=== PATIENT | female | born 1960 | race Caucasian/White ===

== ENCOUNTER 2018-09-17 05:26 | Day surgery (SDC) | payer OTHER, SELFPAY ==
[2018-09-17] VITALS (10 sets, daily range): BP systolic 127–158; BP diastolic 66–103; PULSE 59–82; RESP 16; TEMP 36.3–37; O2SAT 96–100
--- NOTE | 2018-09-17 06:02 | PCM.HP.STD ---
Problem List (1) Screening for intestinal cancer Status: Acute History of Present Illness Date of Admission: 09/17/18 The patient is a 57 year old F who presents for screening colonoscopy. She has never previously had one. She denies bright red blood per rectum or melena. No personal or family history of colon cancer. She is intolerant to Demerol. She was previously scheduled but had problems with the prep not functioning. She is taken additional bowel prep with results. She presents now proceed Past Medical History Past Medical History (Chronic Problems): Chronic Problems (Last Updated 08/13/18 @ 11:45 by Leslie Fox) Hypothyroidism (Chronic) HLD (hyperlipidemia) (Chronic) DM2 (diabetes mellitus, type 2) (Chronic) HTN (hypertension), benign (Chronic) Medical History: Medical History (Last Updated 08/13/18 @ 11:45 by Leslie Fox) Diabetes E11.9 Hemorrhoids K64.9 Thyroid disease E07.9 Hypertension I10 Allergies meperidine [From Demerol] Allergy (Mild, Verified 09/17/18 05:42) Other Pt states Demerol given quickly and HR dropped Sulfa (Sulfonamide Antibiotics) Allergy (Mild, Verified 08/13/18 11:38) X Home Medications: Ambulatory Orders Medication Instructions Recorded clonidine HCl 0.1 mg tablet 1 tab PO BID 30 Days #60 tab 08/13/18 fluticasone 250 mcg-salmeterol 50 1 inh INHALATION BID PRN 08/13/18 mcg/dose blistr powdr for inhalation furosemide 20 mg tablet 1 tab PO DAILY 30 Days #30 tab 08/13/18 levothyroxine 112 mcg tablet 1 tab PO DAILY 30 Days #30 tab 08/13/18 lisinopril 10 mg tablet 0.5 tab PO DAILY 30 Days #15 tab 08/13/18 metoprolol succinate ER 50 mg 1.5 tab PO BID 30 Days #90 tab 08/13/18 tablet,extended release 24 hr simvastatin 80 mg tablet 1 tab PO QHS 30 Days #30 tab 08/13/18 sitagliptin 50 mg-metformin 1,000 1 tab PO BID 30 Days #60 tab 08/13/18 mg tablet venlafaxine ER 150 mg 150 mg PO DAILY 30 Days #30 cap 08/13/18 capsule,extended release 24 hr Albuterol Inhaler [Ventolin Hfa 1 puff INHALATION Q4H PRN PRN 09/11/18 (SP)] sod phos mono-sod phos dibasic 1.5 4 tab PO Q15M #32 tab 09/15/18 gram (1.102-0.398) tablet Surgical History: Surgical History (Last Updated 08/13/18 @ 11:45 by Leslie Fox) BLADDER SLING H/O partial thyroidectomy Z98.890 History of Z98.891 History of hysterectomy Z90.710 History of tonsillectomy Z90.89 Surgical History: noncontributory Smoking Status: Never smoker Review of Systems Constitutional: Denies: Anorexia HEENT: Denies: Difficulty Swallowing Cardiovascular: Denies: Chest Pain Respiratory: Denies: Cough Gastrointestinal: Denies: Abdominal Pain, Melena Endocrine: Denies: Change in Body Habitus VTE Information - Inpt Only VTE Present on Admission: No Patient Problems: Active and Suspected Problems (Last Updated 08/13/18 @ 11:45 by Leslie Fox) Screening for intestinal cancer (Acute) - Physical Exam General: Alert, Oriented x3, Cooperative, No apparent distress HEENT: Atraumatic Oral: Moist Mucosa Lungs: Clear to auscultation Cardiovascular: Regular rate, Regular Rhythm Abdomen: Bowel Sounds Present, Soft, Obese Extremities: No Calf Tenderness Psych/Mental Status: Normal Affect Vital Signs Temp Pulse Resp BP Pulse Ox 98.2 F 82 16 150/103 H 100 09/17/18 05:43 09/17/18 05:59 09/17/18 05:43 09/17/18 05:59 09/17/18 05:43 Oxygen Delivery Method Room Air Assessment/Plan All Active Problems (Last Updated 08/13/18 @ 11:45 by Leslie Fox) Screening for intestinal cancer (Acute) Nodule of neck (Acute) Aphthous stomatitis (Acute) I have discussed with the patient the benefits, risks, alternatives to a screening colonoscopy with possible biopsy or polypectomy is indicated. We will avoid Demerol and utilize fentanyl. She is aware of the technique, benefits, risks, alternatives. She presents via open access today. Ramses Bunn M.D., F.A.C.S.
--- NOTE | 2018-09-17 06:44 | OP.ENDO_ITS ---
Patient Name: Mary Ayala Procedure Date: 09/17/2018 6:10 AM Date of : 1960 Age: 57 Procedure: Colonoscopy Indications: Screening for colorectal malignant neoplasm Providers: Ramses Bunn MD Medicines: Midazolam 3.5 mg IV, Fentanyl 100 micrograms IV, Diphenhydramine 25 mg IV Patient Profile: Last Colonoscopy: none. The patient's first colonoscopy is today. Complications: No immediate complications. Procedure: Pre-Anesthesia Assessment: - Prior to the procedure, a History and Physical was performed, and patient medications and allergies were reviewed. The patient's tolerance of previous anesthesia was also reviewed. The risks and benefits of the procedure and the sedation options and risks were discussed with the patient. All questions were answered, and informed consent was obtained. Prior Anticoagulants: The patient has taken no previous anticoagulant or antiplatelet agents. ASA Grade Assessment: II - A patient with mild systemic disease. After reviewing the risks and benefits, the patient was deemed in satisfactory condition to undergo the procedure. After I obtained informed consent, the scope was passed under direct vision. Throughout the procedure, the patient's blood pressure, pulse, and oxygen saturations were monitored continuously. The colonoscope was introduced through the anus and advanced to the cecum, identified by appendiceal orifice and ileocecal valve. The colonoscopy was performed without difficulty. The patient tolerated the procedure well. The quality of the bowel preparation was good. The ileocecal valve was photographed. Moderate Sedation: Moderate (conscious) sedation was personally administered by the endoscopist. The following parameters were monitored: oxygen saturation, heart rate, blood pressure, and response to care. Total physician intraservice time was 15 minutes. Scope In: 6:25:31 AM Scope Withdrawal Time 0 hours 6 minutes 37 seconds Scope Out: 6:40:29 AM Total Procedure Duration Time 0 hours 14 minutes 58 seconds Findings: Hemorrhoids were found on perianal exam. Scattered diverticula were found in the sigmoid colon. The exam was otherwise without abnormality. Impression: - Hemorrhoids found on perianal exam. - Diverticulosis in the sigmoid colon. - The examination was otherwise normal. - No specimens collected. Recommendation: - Discharge patient to home. - Resume previous diet. - Continue present medications. - Repeat colonoscopy in 10 years for screening purposes. Procedure Code(s): --- Professional --- 61254, Colonoscopy, flexible; diagnostic, including collection of specimen(s) by brushing or washing, when performed (separate procedure) 67388, 59, Moderate sedation services provided by the same physician or other qualified health healthcare educator performing the diagnostic or therapeutic service that the sedation supports, requiring the presence of an independent trained observer to assist in the monitoring of the patient's level of consciousness and physiological status; initial 15 minutes of intraservice time, patient age 5 years or older Diagnosis Code(s): --- Professional --- Z12.11, Encounter for screening for malignant neoplasm of colon K64.9, Unspecified hemorrhoids K57.30, Diverticulosis of large intestine without perforation or abscess without bleeding CPT copyright 2017 [employer]. All rights reserved. The codes documented in this report are preliminary and upon sports medicine trainer review may be revised to meet current compliance requirements. Ramses Bunn MD 09/17/2018 6:44:25 AM This report has been signed electronically. Number of Addenda: 0 Note Initiated On: 09/17/2018 6:10 AM
== END 2018-09-17 07:17 | disposition home or self-care (01) ==
LOC: EN 05:28 → AC 05:29
PROVIDERS: Family Provider Family Medicine; PCP Family Medicine; Referring Provider Surgery; Visit Provider Surgery
PROC: 0DJD8ZZ Inspection of Lower Intestinal Tract, Via Natural or Artificial Opening Endoscopic (ICD-10-PCS; CPT 45378; principal; 2018-09-17 06:25)
DX: Z12.11 Encounter for screening for malignant neoplasm of colon (principal); K57.30 Diverticulosis of large intestine without perforation or abscess without bleeding; K64.9 Unspecified hemorrhoids; E03.9 Hypothyroidism, unspecified; E78.5 Hyperlipidemia, unspecified; E11.9 Type 2 diabetes mellitus without complications; I10 Essential (primary) hypertension; Z79.84 Long term (current) use of oral hypoglycemic drugs; Z79.899 Other long term (current) drug therapy
CPT/HCPCS: 45378; 99152; 99153; J7120

== ENCOUNTER → 2019-04-06 | Outpatient (CLI) | payer OTHER, SELFPAY | END | disposition home or self-care (01) | LOC: BFHLAB 15:29 | PROVIDERS: PCP Family Medicine; Visit Provider Family Medicine | DX: L02.12 Furuncle of neck (principal) | CPT/HCPCS: 87070; 87077; 87186; 87205 ==

== ENCOUNTER → 2020-03-31 09:26 | Outpatient (CLI) | payer BC, SELFPAY ==
--- NOTE | 2020-03-31 09:31 | BI_ITS ---
MAMMOGRAPHY - BILATERAL DIAGNOSTIC REASON FOR EXAM: Female, 59 years old. One-month history of left breast lump. PERTINENT HISTORY: Non-contributory. TECHNIQUE: Digital bilateral breast alejandro (3D mammographic acquisition) in the CC and MLO projections. 2-D mediolateral oblique (MLO) and craniocaudad (CC) views of both breasts were obtained. CAD: Full Field Digital Mammography with Computer Added Detection was performed. COMPARISON: Comparison is made with prior outside examination of 01/07/2014. FINDINGS: Breast Composition: There are scattered areas of fibroglandular density. There are no dominant masses or suspicious calcifications. Stable benign-appearing bilateral axillary lymph nodes. No other significant abnormalities are identified. There has been no significant change since the prior study. BI/DIAG MAMM W/CAD, BILAT IMPRESSION: Stable bilateral diagnostic mammogram. Correlation with ultrasound is recommended to assess the palpable abnormality. ASSESSMENT CATEGORY: BIRADS Category 0: Incomplete. Need additional imaging evaluation. A letter regarding these results will be sent to the patient by the facility within 30 days. Approximately 10% of breast cancers are not detected by mammography. A normal mammogram should not delay biopsy of a clinically suspicious abnormality. Electronically Signed: Antonio Barbosa MD at 11:26 EST , Service support ,
--- NOTE | 2020-03-31 10:53 | US_ITS ---
STUDY: ULTRASOUND BREAST - LEFT REASON FOR EXAM: Female, 59 years old. Palpable lump left breast. TECHNIQUE: Axial and longitudinal images of the LEFT breast were performed with a high resolution ultrasound transducer. # OF IMAGES: 64 COMPARISON: Comparison is made with prior mammogram done earlier today. FINDINGS: LEFT Breast: The upper outer quadrant of the left breast was examined by ultrasound. Dense fibroglandular tissue. No sonographic abnormality is seen. US/Breast Limited Unilateral IMPRESSION: No sonographic abnormality is seen. ASSESSMENT CATEGORY: BIRADS Category 1: Negative. A letter regarding these results will be sent to the patient by the facility within 30 days. Electronically Signed: Antonio Barbosa MD at 14:36 EST , Service support ,
== END ==
LOC: OPBI 09:29
PROVIDERS: PCP Family Medicine; Referring Provider Family Medicine; Visit Provider Family Medicine
DX: N63.25 Unspecified lump in the left breast, overlapping quadrants (principal)
CPT/HCPCS: 76642; 77062; 77066; G0279

== ENCOUNTER → 2020-04-20 13:20 | Outpatient (CLI) | payer BC, SELFPAY ==
[2020-04-19 13:12] VITALS: BMI 39.0
--- NOTE | 2020-04-20 13:23 | US_ITS ---
STUDY: ULTRASOUND BREAST - LEFT REASON FOR EXAM: Female, 59 years old. Palpable lump left breast. TECHNIQUE: Axial and longitudinal images of the LEFT breast were performed with a high resolution ultrasound transducer. # OF IMAGES: 12 COMPARISON: Comparison is made with prior mammogram dated 03/31/2020 and prior ultrasound of the left breast dated 09/28/2020 FINDINGS: LEFT Breast: Under direct sonographic guidance, the surgeon performed core biopsies of the 3 mm x 3 mm hypoechoic nodule at the 12 o''clock position in the breast at 12 cm from the nipple. US/Breast Limited Unilateral IMPRESSION: Successful ultrasound-guided core biopsy of the hypoechoic lesion at the 12 o''clock position of the breast. ASSESSMENT CATEGORY: BIRADS Category 2: Benign. A letter regarding these results will be sent to the patient by the facility within 30 days. Electronically Signed: Antonio Barbosa MD at 15:11 EST , Service support ,
== END ==
LOC: OPUS 13:21
PROVIDERS: PCP Family Medicine; Referring Provider Surgery; Visit Provider Surgery
DX: N63.25 Unspecified lump in the left breast, overlapping quadrants (principal)
CPT/HCPCS: 76642

== ENCOUNTER → 2020-05-04 07:42 | Outpatient (CLI) | payer BC, SELFPAY ==
[2020-04-19 13:12] VITALS: BMI 39.0
--- NOTE | 2020-05-04 07:44 | US_ITS ---
ULTRASOUND GUIDED CORE BIOPSY REASON FOR EXAM: Female, 59 years old. Left breast mass PERTINENT HISTORY: Abnormal left breast ultrasound. COMPARISON: None. TECHNIQUE: (All elements of maximal sterile barrier technique followed, including US elements as applicable) Under direct sonographic guidance, the surgeon performed core biopsies of the 3 mm x 4 mm x 2 mm hypoechoic nodule at the 12 o''clock position of the breast at 12 cm from the nipple. US/US Breast Biopsy 1st Lesion IMPRESSION: Ultrasound guided core biopsy of a mass in the LEFT breast at 12 o''clock position of the breast at 12 cm from nipple. without complication. Electronically Signed: Antonio Barbosa MD at 9:15 EST , Service support ,
--- NOTE | 2020-05-04 08:30 | BRBX_PTH ---
PATIENT: TASIA CANDELARIA LOC: [facility]#:[id number] AGE/SX: 64/F ROOM: RE05/04/[address]: Dr. Cely Butler MD : 1960 BED: DIS: SPEC #: [id number] RECD: 05/04/20 09:03 STATUS: HERB ANA ROSA #: [id number] LILI: 05/04/20 08:[address]: Cely Butler DEPT: SURGICAL PATHOLOGY RECD BY: Pam Woods ENTERED: 05/04/20 10:42 SP TYPE: BREAST BX OTHR DR: Dr. Zoë Payton MD Tissues: Breast, NOS Procedures: Surgery Specimen Level IV HEADER OPERATION: Ultrasound-guided left breast biopsy PRE-OP DIAGNOSIS: Left breast mass TISSUE SUBMITTED: Left breast mass ISCHEMIC TIME: 30 seconds FIXATION TIME: 11 hours MICROSCOPIC DIAGNOSIS Left breast mass, ultrasound-guided core biopsy: Fragments of fatty benign breast tissue. Negative for atypia or malignancy. See comment. LUCIAN:glenn 05/05/2020 COMMENT Correlation with clinical, radiologic findings and appropriate follow up are necessary. MICROSCOPIC DESCRIPTION Slides are reviewed. GROSS DESCRIPTION Received in fixative is one container labeled with the patient name and designated left breast. The specimen consists of multiple elongated fragments of mcdaniels-yellow fibroadipose tissue that in aggregate measure 2.5 x 1 x 0.1 cm. The entire specimen is submitted in one cassette. / SJ:glenn 05/04/2020 TC:4 CPT: 50555
--- NOTE | 2020-05-04 08:35 | PCM.OPRPT ---
Report of Operation Date of Procedure: 05/04/20 Pre-Operative Diagnosis: Left breast mass Post-Operative Diagnosis: Same Surgery/Procedure Performed:: Left ultrasound-guided breast biopsy?12:00/1:00 12 cm from nipple Type of Anesthesia:: Local Specimen's removed: Left breast mass 12:00/:00 12 cm from the nipple Estimated Blood Loss (mL): Normal Description of Procedure: Procedure: ultrasound-guided core biopsy Indications: 59 year-old female with hypoechoic nodule at 12:00/:00 in the left breast 12 centimeters from the nipple. Risk benefits were discussed the patient and she elected to proceed with ultrasound guided core biopsy with clip placement Description of procedure: Patient was brought into the ultrasound room in the left breast was marked. A timeout was completed verifying correct patient, procedure, site, specially, prior to beginning procedure. The left breast was prepped and draped in usual sterile fashion and using local anesthesia was obtained with 1% lidocaine with epi. The lesion was located with the ultrasound. Small incision was made with 11 blade to introduced the mammotome through the skin. Under ultrasound guidance multiple core samples were obtained using then 13-gauge mammotome and sent in formalin for pathology. The mammotome mammostar clip was then deployed into the biopsy cavity under ultrasound guidance and a picture was taken. Upon completion procedure hemostasis was obtained and a Steri-Strip and OpSite were placed. Patient was then taken to the mammography suite for clip verification. The clip was verified. The patient tolerated the procedure well and was discharged from the breast imaging department good condition. complications: none - Complications None
== END ==
LOC: US 07:42
PROVIDERS: PCP Family Medicine; Referring Provider Surgery; Visit Provider Surgery
DX: N63.20 Unspecified lump in the left breast, unspecified quadrant (principal)
CPT/HCPCS: 19083; 88305

== ENCOUNTER → 2020-08-04 09:23 | Outpatient (CLI) | payer BC, SELFPAY ==
[2020-04-19 13:12] VITALS: BMI 39.0
--- NOTE | 2020-08-04 09:26 | US_ITS ---
STUDY: ULTRASOUND BREAST - LEFT REASON FOR EXAM: Female, 59 years old. Left breast nodule. Prior ultrasound-guided biopsy. TECHNIQUE: Axial and longitudinal images of the LEFT breast were performed with a high resolution ultrasound transducer. # OF IMAGES: 45 COMPARISON: Comparison is made with prior sonogram dated 04/20/2020. FINDINGS: LEFT Breast: Stable 3 mm x 4 mm x 3 mm hypoechoic nodular density at the 12 o''clock position of the breast 12 cm from nipple. A tissue clip marker is seen within it. US/Breast Limited Unilateral IMPRESSION: Status post ultrasound-guided biopsy with clip placement as described. ASSESSMENT CATEGORY: BIRADS Category 2: Benign. A letter regarding these results will be sent to the patient by the facility within 30 days. Electronically Signed: Antonio Barbosa MD at 13:29 EDT , Service support ,
== END ==
PROVIDERS: PCP Family Medicine; Referring Provider Surgery; Visit Provider Surgery
DX: N63.20 Unspecified lump in the left breast, unspecified quadrant (principal)
CPT/HCPCS: 76642

== ENCOUNTER 2020-08-29 10:50 | Day surgery (SDC) | payer BC, SELFPAY ==
[2020-08-22 14:08] VITALS: BMI 39.0
[2020-08-29] MEDS: Lactated Ringers 1,000 ML 100 ML IV (11:05)
--- NOTE | 2020-08-29 11:28 | PCM.HP.BLA ---
History and Physical Date of Admission: 08/29/20 Date of Service: 08/22/20 MR#:[id number] Acct:[id number] Name: TASIA CANDELARIA :1960 Age/Sex: 59/F Rep #:[id number] Provider:Dr. Cely Butler MD Location:[facility] Status:Signed Intake Vital Signs 08/22/20 14:08 BMI 39.0 Intake Visit Reasons: Discuss possible repeat breast bx Chief Complaint: left breast issue Allergies meperidine [From Demerol] Allergy (Mild, Verified 08/22/20 13:48) Other Sulfa (Sulfonamide Antibiotics) Allergy (Mild, Verified 08/22/20 13:48) X Medications clonidine HCl 0.1 mg tablet 1 tab PO BID 30 Days #60 tab 08/13/18 [History Confirmed 08/22/20] fluticasone 250 mcg-salmeterol 50 mcg/dose blistr powdr for inhalation 1 inh INHALATION BID PRN 08/13/18 [History Confirmed 08/22/20] furosemide 20 mg tablet 1 tab PO DAILY 30 Days #30 tab 08/13/18 [History Confirmed 08/22/20] levothyroxine 112 mcg tablet 1 tab PO DAILY 30 Days #30 tab 08/13/18 [History Confirmed 08/22/20] lisinopril 10 mg tablet 0.5 tab PO DAILY 30 Days #15 tab 08/13/18 [History Confirmed 08/22/20] metoprolol succinate 50 mg tablet,extended release 24 hr 1.5 tab PO BID 30 Days #90 tab 08/13/18 [History Confirmed 08/22/20] simvastatin 80 mg tablet 1 tab PO QHS 30 Days #30 tab 08/13/18 [History Confirmed 08/22/20] venlafaxine 150 mg capsule,extended release 24 hr 150 mg PO DAILY 30 Days #30 cap 08/13/18 [History Confirmed 08/22/20] albuterol sulfate 1 puff INHALATION Q4H PRN PRN 09/11/18 [History Confirmed 08/22/20] sod phos mono-sod phos dibasic 1.5 gram (1.102-0.398) tablet 4 tab PO Q15M #32 tab 09/15/18 [Rx Confirmed 08/22/20] loratadine 10 mg tablet 10 mg PO DAILY 04/19/20 [History Confirmed 08/22/20] metformin 1,000 mg tablet 1,000 mg PO BID 04/19/20 [History Confirmed 08/22/20] multivitamin 1 tab PO DAILY 04/19/20 [History Confirmed 08/22/20] PFSH Medical History Diabetes Hemorrhoids Hypertension Thyroid disease Surgical History BLADDER SLING H/O partial thyroidectomy H/O right heart catheterization History of History of hysterectomy History of tonsillectomy Family History Mother Colon cancer CAD (coronary artery disease) Father Heart disease Brother Bleeding disorder Cancer melanoma Grandmother CVA (cerebral vascular accident) Social History Smoking Status: Never smoker alcohol intake: never HPI HPI HPI: TASIA CANDELARIA, is a 59 F who presents to the office today for review of left breast mass repeat ultrasound and pathology results. Patient's initial pathology did show fatty tissue no malignancy or atypia. Clip appears to be in the correct area as well per mammography and ultrasound. However there is still a small lesion seen on the new ultrasound given BI-RADS 2, which does not fit with the initial pathology recommend repeat biopsy or excisional biopsy. Patient preferred excisional biopsy. ROS Breast Breast: Yes left breast lump; No right breast lump, nipple discharge or breast pain Exam Const General: cooperative, healthy appearing, comfortable and no acute distress Chest Other: Left breast 01/31:00 12 cm from the nipple firm nodule about a centimeter on exam, no change in overlying skin, no pain, no nipple discharge. Resp Effort & Inspection: normal respiratory effort Cardio Rate: regular rate Psych Affect: normal affect COVID (Procedure Consent) Procedure Criteria Procedure Criteria: Yes Elective The surgeon/proceduralist and patient have discussed in detail the risk of exposure to and/or potential harm posed by the COVID-19 virus with having a surgery/procedure at this time versus the risk of delaying the surgery/procedure. It is not possible to know either the risk of delaying the surgery or procedure or chance of getting an infection with perfect accuracy, but a joint decision was made between the patient and the surgeon/proceduralist to proceed at this time with the scheduled surgery/procedure as indicated on the consent form. Assessment and Plan Assessment and Plan (1) Breast mass, left: Status: Acute Plan: We will plan for a left breast excisional biopsy with ultrasound-guided wire localization in the OR. Discussed with the procedure including risk but not limited to bleeding, infection, need for further surgery and anesthesia. Patient no further questions this time. Cely Butler M.D. Pager: [phone] [facility] [address] [place] [address], [address] [place] [address] Office: [phone] Coding Level of Care Code Off vis,est,level 3 Diagnoses Breast mass, left N63.20 08/23/20 1315<Electronically signed by Cely Butler MD>Date Cely Butler MD
[2020-08-29 11:29] VITALS: BP 173/89; PULSE 71; RESP 16; TEMP 37.4; O2SAT 98; BMI 39.1
[2020-08-29 11:41] LABS: Bedside Glucose 146 mg/dL (70-110)
[2020-08-29] MEDS: Cefazolin 2 GM in 0.9% Normal Saline 100 ML IV (12:13)
--- NOTE | 2020-08-29 12:56 | BRBX_PTH ---
PATIENT: TASIA CANDELARIA LOC: [facility] U#:[id number] AGE/SX: 59/F ROOM: RE08/29/[address]: Dr. Cely Butler MD : 1960 BED: DIS: 08/29/2020 SPEC #: [id number] RECD: 08/29/20 13:05 STATUS: HERB REYuni #: [id number] LILI: 08/29/20 12:[address]: Cely Butler DEPT: SURGICAL PATHOLOGY RECD BY: Pam Woods ENTERED: 08/29/20 13:11 SP TYPE: BREAST BX OTHR DR: Dr. Zoë Payton MD Tissues: Left breast, NOS Procedures: Surgery Specimen Level V HEADER OPERATION: Left breast ultrasound-guided wire localized excisional biopsy PRE-OP DIAGNOSIS: Left breast mass TISSUE SUBMITTED: Left breast MICROSCOPIC DIAGNOSIS Left breast, ultrasound-guided lumpectomy: Mild fibrocystic change. Changes of previous biopsy. No evidence of malignancy. AM:glenn 09/01/2020 COMMENT Reference is made to the patient?s previous left breast mass, ultrasound-guided core biopsy from 05/05/20 ([id number]) in which fragments of benign breast tissue with no evidence of malignancy were identified. Case has been reviewed in consultation with Dr. Patel who concurs with the above diagnosis. IDC:SJ MICROSCOPIC DESCRIPTION Slides are reviewed. GROSS DESCRIPTION Received in fixative is one container labeled with the patient's name and designated left breast. The specimen consists of an irregular fragment of mcdaniels-yellow fibrofatty tissue measuring 4 x 3 x 1.7 cm and weighing 9 gm. The specimen contains a metallic wire. The specimen is oriented and differentially inked as follows: anterior - yellow, posterior - black, superior - blue, inferior - green, medial - red and lateral - orange. The specimen is serially sectioned along its narrow axis (medial to lateral). The central portion of the tissue located 5 mm from the superior margin contains a firm nodule measuring 6 mm in greatest dimension. The remainder of the tissue is unremarkable. The specimen is totally submitted in seven cassettes. The lesion is represented in cassette 2. Also present free in the container is an irregular fragment of yellow-fatty tissue measuring 1.5 x 1 x 0.5 cm. This fragment is inked, bisected and totally submitted in cassette 8. Note, sections are submitted after additional fixation. / AM:glenn 08/30/20 TC:5 CPT: 85887
--- NOTE | 2020-08-29 12:59 | OP.PCM_ITS ---
Report of Operation Date of Procedure: 08/29/20 Pre-Operative Diagnosis: Right breast mass Post-Operative Diagnosis: same Surgery/Procedure Performed:: excisional biopsy of right breast mass Surgeon: Cely Butler piping design specialist: Janell Pearson Type of Anesthesia: General/Supplemental Anesthesiologist: Mynor Orozco Special Medications: Ancef 2 g IV x1 Specimen's removed: Right breast mass Estimated Blood Loss (mL): < 10 cc Fluids Replaced: Per anesthesia Description of Procedure: Patient was brought to the operating room placed supine upon the operating table. Timeout was completed verifying correct patient, procedure, site, special equipment prior to beginning procedure. General anesthesia was induced. Patient's right breast was prepped draped in usual sterile fashion. Ultrasound was used to locate right breast lesion/previous clip. Needle localization with a Kopan's needle was done under ultrasound guidance just below the area of the clip, inferior to the breast mass. Curvilinear incision was planned overlying the breast mass to minimize dissection. Incision was made with 15 blade scalpel. This was deepened with electrocautery. The excess Kopan needle was brought into the incision and 2-0 silk [id number] sutures used for traction on the needle/breast mass. Dissection followed beneath the Kopan's needle. Breast mass was removed and marked for pathology with a long stitch lateral, short stitch superior. Wound was irrigated. Hemostasis was achieved with electrocautery. Wound was closed with 3-0 subdermal sutures and 4-0 Monocryl sutures on the skin. When also dressed with Steri-Strips and OpSite. Patient tolerated procedure well stable to the postanesthesia care unit in stable condition. Complications none
--- NOTE | 2020-08-29 13:00 | BI_ITS ---
SURGICAL BREAST SPECIMEN RADIOGRAPH CLINICAL: Document presence of tissue clip marker in biopsy specimen. FINDINGS: Specimen shows presence of tissue clip marker. Electronically Signed: Antonio Barbosa MD at 14:45 EDT , Service support , BI/Breast Biopsy Specimen
--- NOTE | 2020-08-29 13:06 | EX.PCM.DISCH ---
Discharge Instructions Procedure Breast Surgery Diet Discharge Diet: No restrictions Activity Discharge Activity: May Not Drive (while taking narcotic pain meds.) May shower in (days): 1 Lifting Restrictions: 10 pounds for 1 week. Dressing / Incision Call your doctor if your incision/area has: Continuous Slow Oozing, Sudden Increased Bleeding, Increased Pain/ Swelling and Increased Redness Call your doctor if you observe: Fever of 101 or Higher Suture Line Care: Avoid Pulling/Pushing and Avoid Pinching/Bending Remove Dressing in: 1 day Additional Dressing/Incision Instructions:: May leave any op-site dressing for 2-3 days. Steri-Strips may removed after 7 to 10 days if they do not fall off on their own Follow Up Care Please Follow Up With: Cely Butler MD When: Please call [phone] for an appointment to be seen in 2 week. Test Results: Test results from this visit will be discussed in further detail at your follow-up appointment, if applicable. Discharge Plan Admission Attending Provider: Cely Butler Primary Care Provider: Zoë Payton Discharge Orders/Prescriptions Prescriptions: New oxycodone-acetaminophen [Percocet] 5-325 mg tablet 1 tab PO Q6H PRN (Reason: pain) 2 Days Qty: 5 RF: 0 Continued clonidine HCl 0.1 mg tablet 1 tab PO BID 30 Days Qty: 60 RF: 0 metoprolol succinate 50 mg tablet extended release 24 hr 1.5 tab PO BID 30 Days Qty: 90 RF: 0 venlafaxine [Effexor XR] 150 mg capsule,extended release 24hr 150 mg PO DAILY 30 Days Qty: 30 RF: 0 lisinopril 10 mg tablet 0.5 tab PO DAILY 30 Days Qty: 15 RF: 0 simvastatin 80 mg tablet 1 tab PO QHS 30 Days Qty: 30 RF: 0 furosemide 20 mg tablet 1 tab PO DAILY 30 Days Qty: 30 RF: 0 levothyroxine 112 mcg tablet 1 tab PO DAILY 30 Days Qty: 30 RF: 0 fluticasone propion-salmeterol [Advair Diskus] 250-50 mcg/dose blister with device 1 inh INHALATION BID PRN (Reason: Shortness Of Breath) RF: 0 metformin 1,000 mg tablet 1,000 mg PO BID RF: 0 loratadine [Allergy Relief (loratadine)] 10 mg tablet 10 mg PO DAILY RF: 0 multivitamin Tablet 1 tab PO DAILY RF: 0 albuterol sulfate 1 INHALER inhaler 1 puff inhalation Q4H PRN PRN (Reason: Sob &/Or Wheezing) RF: 0 Lantus Solostar U-100 Insulin 100 unit/mL (3 mL) insulin pen 38 unit SUBCUT QHS RF: 0 Referrals / Follow Up: Zoë Payton MD [Primary Care Provider] - Disposition Disposition (needs filled in before D/C Order can be placed): Home, Self Care
[2020-08-29 13:19] VITALS: BP 142/83; BP 173/89; PULSE 75; RESP 16; TEMP 36.3; O2SAT 100
[2020-08-29 13:30] VITALS: BP 139/79; BP 173/89; PULSE 72; RESP 16; O2SAT 96
[2020-08-29 13:45] VITALS: BP 124/77; BP 173/89; PULSE 69; RESP 16; TEMP 36.1; O2SAT 94
[2020-08-29 13:51] LABS: Bedside Glucose 119 mg/dL (70-110)
[2020-08-29 14:21] VITALS: BP 134/75; BP 173/89; PULSE 71; RESP 16; TEMP 36.7; O2SAT 95
== END 2020-08-29 14:26 | disposition home or self-care (01) ==
LOC: SDC 10:52 → AC 10:52
PROVIDERS: PCP Family Medicine; Referring Provider Surgery; Visit Provider Surgery
PROC: (CPT 19125; principal; 2020-08-29 12:25)
DX: N60.12 Diffuse cystic mastopathy of left breast (principal); E11.9 Type 2 diabetes mellitus without complications; I10 Essential (primary) hypertension; E07.9 Disorder of thyroid, unspecified; J45.909 Unspecified asthma, uncomplicated; E78.00 Pure hypercholesterolemia, unspecified; Z79.4 Long term (current) use of insulin; Z79.51 Long term (current) use of inhaled steroids; Z79.899 Other long term (current) drug therapy
CPT/HCPCS: 00400; 19125; 76098; 82962; 87426; 88305; 88307; C9803; J7120; J2405

== ENCOUNTER → 2021-02-20 | Outpatient (CLI) | payer BC, SELFPAY | END | disposition home or self-care (01) | LOC: LABSPEC 17:03 | PROVIDERS: PCP Family Medicine; Visit Provider Family Medicine | DX: Z20.822 Contact with and (suspected) exposure to COVID-19 (principal) | CPT/HCPCS: 87635; U0005; U0003 ==

== ENCOUNTER 2021-03-05 11:54 | Emergency (ER) | payer BC, SELFPAY ==
[2021-03-05 11:54] VITALS: BP 118/76; PULSE 86; RESP 14; TEMP 36.4; O2SAT 96; BMI 38.4
--- NOTE | 2021-03-05 12:35 | RAD_ITS ---
STUDY: X-RAY - RIGHT FOOT CLINICAL: Right foot pain, right foot injury last night. TECHNIQUE: 3 view(s) of the foot. COMPARISON: None. FINDINGS: There is a plantar calcaneal enthesophyte. Otherwise, unremarkable talus, calcaneus, and tarsal bones. Normal visualized subtalar, talonavicular, calcaneocuboid, tarsal and tarsometatarsal articulations. There is a subtle nondisplaced transverse fracture through the base of the fifth metatarsal. Normal metatarsophalangeal joint of the great toe. Normal tibial and fibular sesamoid bones. Normal interphalangeal joint of the great toe. Normal phalanges of the great toe. Normal second through fifth metatarsophalangeal joints. Normal interphalangeal joints and phalanges of the lesser toes. There is mild lateral soft tissue swelling. RAD/Foot min 3 Views IMPRESSION: Nondisplaced fifth metatarsal base fracture. Electronically Signed: Steve Diaz MD at 13:18 EST Tel , Service support ,
--- NOTE | 2021-03-05 13:50 | RAD_ITS ---
STUDY: X-RAY - RIGHT ANKLE REASON FOR EXAM: Right ankle pain and popping, right ankle injury. TECHNIQUE: 3 view(s) of the ankle. COMPARISON: None. FINDINGS: Normal visualized distal tibia and fibula. Normal medial and lateral malleoli. Normal tibiotalar articulation and ankle mortise. There is a plantar calcaneal enthesophyte. Otherwise, unremarkable visualized talus and calcaneus. The visualized subtalar, talonavicular, calcaneocuboid and tarsal articulations are normal. There is a subtle nondisplaced transverse fracture of the base of the fifth metatarsal. The soft tissue structures are unremarkable. RAD/Ankle min 3 Views IMPRESSION: Fracture of the base of the fifth metatarsal. Plantar calcaneal enthesophyte. Electronically Signed: Steve Diaz MD at 14:16 EST Tel , Service support ,
--- NOTE | 2021-03-05 14:47 | ED.VIS.LOWEX ---
HPI History of Present Illness Chief Complaint: Lower Extremity Injury Informant: patient Narrative Narrative: 60-year-old female states that last night she got out of bed and put weight on her foot and felt a pop. She notes swelling and pain along the fifth metatarsal. Pain with ambulation. She denies any other injuries. [facility] Medical History Asthma Diabetes Hemorrhoids High cholesterol History of edema History of irregular heartbeat Hypertension Thyroid disease Home Medications clonidine HCl 0.1 mg tablet 1 tab PO BID 30 Days #60 tab 08/13/18 [History Last Taken 09/17/18] fluticasone 250 mcg-salmeterol 50 mcg/dose blistr powdr for inhalation 1 inh INHALATION BID PRN 08/13/18 [History Last Taken Unknown] furosemide 20 mg tablet 1 tab PO DAILY 30 Days #30 tab 08/13/18 [History Last Taken Unknown] levothyroxine 112 mcg tablet 1 tab PO DAILY 30 Days #30 tab 08/13/18 [History Last Taken Unknown] lisinopril 10 mg tablet 0.5 tab PO DAILY 30 Days #15 tab 08/13/18 [History Last Taken 09/17/18] metoprolol succinate 50 mg tablet,extended release 24 hr 1.5 tab PO BID 30 Days #90 tab 08/13/18 [History Last Taken 09/17/18] simvastatin 80 mg tablet 1 tab PO QHS 30 Days #30 tab 08/13/18 [History Last Taken Unknown] venlafaxine 150 mg capsule,extended release 24 hr 150 mg PO DAILY 30 Days #30 cap 08/13/18 [History Last Taken Unknown] albuterol sulfate 1 puff INHALATION Q4H PRN PRN 09/11/18 [History Last Taken Unknown] loratadine 10 mg tablet 10 mg PO DAILY 04/19/20 [History Last Taken Unknown] metformin 1,000 mg tablet 1,000 mg PO BID 04/19/20 [History Last Taken Unknown] multivitamin 1 tab PO DAILY 04/19/20 [History Last Taken Unknown] Lantus Solostar U-100 Insulin 38 unit SUBCUT QHS 08/24/20 [History Last Taken Unknown] oxycodone-acetaminophen [Percocet] 1 tab PO Q6H PRN 2 Days #5 tab 08/29/20 [Rx Last Taken Unknown] Allergy/AdvReac Type Severity Reaction Status Date / Time meperidine [From Demerol] Allergy Mild Other Verified 03/05/21 11:56 Sulfa (Sulfonamide Allergy Mild X Verified 03/05/21 11:56 Antibiotics) Family History Mother Colon cancer CAD (coronary artery disease) Father Heart disease Brother Bleeding disorder Cancer melanoma Grandmother CVA (cerebral vascular accident) Surgical History BLADDER SLING H/O partial thyroidectomy H/O right heart catheterization History of History of hysterectomy History of tonsillectomy Hx of colonoscopy Social History Smoking Status: Never smoker alcohol intake: never ROS ROS ED Constitutional Constitutional ED: Denies chills, fever(s) or weight loss Eyes Eyes: Denies change in vision or diplopia ENT ENT ED: Denies ear pain, rhinorrhea or sore throat Cardiovascular Cardiovascular: Denies chest pain, orthopnea, palpitations or racing heartbeat Respiratory/Chest Respiratory/Chest: Denies cough, dyspnea or orthopnea Gastrointestinal Gastrointestinal: Denies abdominal pain, diarrhea, nausea or vomiting Genitourinary Genitourinary ED: Denies dysuria, hematuria or urinary frequency Musculoskeletal Musculoskeletal: Reports other Details: See history of present illness ; Denies arthralgias or myalgias Integumentary Denies abscess or rash Neurologic Neurologic: Denies headache(s) or weakness Psychiatric Psychiatric: Denies anxiety, depression, suicidal ideation or suicidal thoughts Endocrine Endocrinology: Denies polydipsia, polyphagia or polyuria Allergic/Immunologic Allergic/Immunologic ED: Denies mouth swelling, tongue swelling or urticaria EXAM Physical Exam Const Vital Signs: 03/05/21 11:54 Temperature 97.5 F L Temperature Source Temporal Pulse Rate 86 Respiratory Rate 14 Blood Pressure 118/76 Blood Pressure Mean 90 Pulse Ox 96 Oxygen Delivery Method Room Air Positive well nourished and well developed General Appearance ED: well developed HEENT Reports normocephalic, head/scalp atraumatic and moist mucous membranes normocephalic and atraumatic Eyes PERRL and EOMs intact bilaterally Eyes Narrative: EOMI Neck full ROM, no lymphadenopathy, supple and no JVD Resp normal respiratory effort and clear to auscultation bilaterally Cardio regular rate, regular rhythm and no murmurs GI normal to inspection, nondistended, normoactive bowel sounds and non-tender Palpation: soft Back/Spine no CVA tenderness and normal ROM Extremity Extremity Narrative: There is swelling and tenderness along the right fifth metatarsal. Limited range of motion due to pain. Neurovascular intact. General Extremety ED: Negative for edema General Extremity: Negative for edema Neuro oriented x3 and CN's II-XII intact bilaterally Sensorium / Orientation: alert Motor Exam: strength 5/5 throughout Psych mental status grossly normal Mood & Affect: Negative for depressed or tearful Skin no rashes or lesions noted and no wounds MDM MDM MDM Narrative Medical decision making narrative: Interpretation of the plain films of the right foot and ankle is a nondisplaced base of fifth metatarsal fracture. Patient declines pain medications. She will be placed in walking boot and given crutches. She is to follow-up with podiatry return if worsening or concerns Radiography Diagnostic Testing: Clinical Impression(s) from Imaging Studies Foot X-Ray 03/05/21 12:35 IMPRESSION: Nondisplaced fifth metatarsal base fracture. Electronically Signed: Steve Diaz MD at 13:18 EST Tel , Service support , Ankle X-Ray 03/05/21 13:50 IMPRESSION: Fracture of the base of the fifth metatarsal. Plantar calcaneal enthesophyte. Electronically Signed: Steve Diaz MD at 14:16 EST Tel , Service support , Discharge Plan Triage Chief Complaint: Lower Extremity Injury ED Provider: Ricky Pena Dx/Rx/DC Orders Clinical Impression: Closed nondisplaced fracture of fifth metatarsal bone of right foot Instructions: ED Fracture, Foot Prescriptions: No Action clonidine HCl 0.1 mg tablet 1 tab PO BID 30 Days Qty: 60 RF: 0 metoprolol succinate 50 mg tablet extended release 24 hr 1.5 tab PO BID 30 Days Qty: 90 RF: 0 venlafaxine [Effexor XR] 150 mg capsule,extended release 24hr 150 mg PO DAILY 30 Days Qty: 30 RF: 0 lisinopril 10 mg tablet 0.5 tab PO DAILY 30 Days Qty: 15 RF: 0 simvastatin 80 mg tablet 1 tab PO QHS 30 Days Qty: 30 RF: 0 furosemide 20 mg tablet 1 tab PO DAILY 30 Days Qty: 30 RF: 0 levothyroxine 112 mcg tablet 1 tab PO DAILY 30 Days Qty: 30 RF: 0 fluticasone propion-salmeterol [Advair Diskus] 250-50 mcg/dose blister with device 1 inh INHALATION BID PRN (Reason: Shortness Of Breath) RF: 0 metformin 1,000 mg tablet 1,000 mg PO BID RF: 0 loratadine [Allergy Relief (loratadine)] 10 mg tablet 10 mg PO DAILY RF: 0 multivitamin Tablet 1 tab PO DAILY RF: 0 albuterol sulfate 1 INHALER inhaler 1 puff inhalation Q4H PRN PRN (Reason: Sob &/Or Wheezing) RF: 0 Lantus Solostar U-100 Insulin 100 unit/mL (3 mL) insulin pen 38 unit SUBCUT QHS RF: 0 oxycodone-acetaminophen [Percocet] 5-325 mg tablet 1 tab PO Q6H PRN (Reason: pain) 2 Days Qty: 5 RF: 0 Primary Care Provider: Zoë Payton Referrals: Zoë Payton MD [Primary Care Provider] - Richard Mena DPM [STAFF PHYSICIAN] - As soon as possible Disposition Disposition: Home, Self Care
[2021-03-05 15:25] VITALS: BP 107/71; PULSE 75; RESP 16; O2SAT 96
== END 2021-03-05 16:33 | disposition home or self-care (01) ==
PROVIDERS: Emergency Provider Emergency Medicine; PCP Family Medicine; Visit Provider Emergency Medicine
DX: S92.354A Nondisplaced fracture of fifth metatarsal bone, right foot, initial encounter for closed fracture (principal); E11.9 Type 2 diabetes mellitus without complications; Z79.4 Long term (current) use of insulin; X58.XXXA Exposure to other specified factors, initial encounter; Y99.9 Unspecified external cause status; Y93.9 Activity, unspecified; Y92.9 Unspecified place or not applicable; I10 Essential (primary) hypertension; E78.00 Pure hypercholesterolemia, unspecified; E07.9 Disorder of thyroid, unspecified; J45.909 Unspecified asthma, uncomplicated; Z79.890 Hormone replacement therapy; Z79.899 Other long term (current) drug therapy
CPT/HCPCS: 73610; 73630; 99284

== ENCOUNTER 2021-03-13 09:59 | Outpatient (CLI) | payer BC, SELFPAY ==
[2021-03-13 11:03] LABS: Vitamin D,25 Hydroxy 28.6 ng/mL
== END 2021-03-13 23:59 | disposition short-term general hospital (02) ==
LOC: LAB 10:02
PROVIDERS: PCP Family Medicine; Visit Provider Podiatrist
DX: E55.9 Vitamin D deficiency, unspecified (principal)
CPT/HCPCS: 36415; 82306

== ENCOUNTER → 2021-12-07 | Outpatient (CLI) | payer BC, SELFPAY ==
--- NOTE | 2021-12-07 15:10 | BI_ITS ---
MAMMOGRAPHY - BILATERAL SCREENING REASON FOR EXAM: Female, 61 years old. Routine annual screening examination. PERTINENT HISTORY: Prior left excisional breast biopsy. TECHNIQUE: Digital bilateral breast radha (3D mammographic acquisition) in the CC and MLO projections. 2-D mediolateral oblique (MLO) and craniocaudad (CC) views of both breasts were obtained. CAD: Full Field Digital Mammography with Computer Added Detection was performed. COMPARISON: Comparison is made with prior mammogram dated 09/28/2020. FINDINGS: Breast Composition: There are scattered areas of fibroglandular density. There are no dominant masses or suspicious calcifications. Stable benign-appearing bilateral axillary lymph nodes. No other significant abnormalities are identified. There has been no significant change since the prior study. BI/SCRN MAMM (CAD)W/RADHA BILAT IMPRESSION: Stable bilateral screening mammogram. Yearly follow-up mammogram recommended. (A) ASSESSMENT CATEGORY: BIRADS Category 2: Benign. A letter regarding these results will be sent to the patient by the facility within 30 days. Approximately 10% of breast cancers are not detected by mammography. A normal mammogram should not delay biopsy of a clinically suspicious abnormality. [id number] Electronically Signed: Antonio aBrbosa MD at 8:47 EDT ,
== END | disposition home or self-care (01) ==
LOC: OPBI 15:09
PROVIDERS: PCP Family Medicine; Visit Provider Family Medicine
DX: Z12.31 Encounter for screening mammogram for malignant neoplasm of breast (principal)
CPT/HCPCS: 77063; 77067

== ENCOUNTER 2022-02-22 11:59 | Observation (INO) | payer BC, SELFPAY ==
[2022-02-22] VITALS (9 sets, daily range): BP systolic 132–162; BP diastolic 71–86; PULSE 60–78; RESP 15–19; TEMP 36.2–36.8; O2SAT 95–97; BMI 38.6
--- NOTE | 2022-02-22 12:14 | RAD_ITS ---
STUDY: X-RAY CHEST REASON FOR EXAM: Female, 61 years old. Chest pain TECHNIQUE: Single AP portable view of the chest. COMPARISON: None. FINDINGS: EKG electrodes are seen. The lungs are clear and expanded. There is no demonstrated pleural abnormality. Normal size heart. Normal mediastinum and casey. Normal visualized pulmonary arteries. There is atherosclerotic tortuosity of the aortic arch and descending thoracic aorta. There are diffuse degenerative changes of the visualized thoracic spine. Normal visualized ribs, clavicles, and shoulders. There is no demonstrated abnormality of the visualized soft tissue structures of the upper abdomen. RAD/Chest 1 View (Portable) IMPRESSION: Degenerative changes, as described above. No demonstrated acute cardiopulmonary process. Electronically Signed: Antonio Barbosa MD at 13:40 EST ,
--- NOTE | 2022-02-22 12:16 | EDS_ITS ---
HPI History of Present Illness Chief Complaint: Chest Pain Detail of Chief Complaint: Chest tightness with activity alleviated with rest Informant: patient Onset/Context/Timing Onset: Days (Onset 3 days ago) Activity at onset: sudden Timing: Intermittent Quality: Positive for Tightness Location: Substernal Current Severity: 03/12 Maximum Severity: Moderate Worsened By: Exertion (Patient states if she walks up a flight of stairs she will get chest pain now. It is taking less activity to precipitate the chest heaviness) Relieved By: Rest (Alleviated after 20 to 30 minutes of rest) Associated Symptoms: Positive for Nausea, Diaphoresis and Dyspnea; Negative for Vomiting, Cough, Fever, Lightheadedness, Acid Reflux or Palpitations Narrative Narrative: Patient is a 61-year-old woman with history of hypertension, type 2 diabetes, hypercholesterolemia and family history coronary disease at young age who presents with classic exertional angina. Patient states symptoms started 3 days ago. It does radiate to her back. There is associated nausea, dyspnea and occasionally diaphoresis. Prior Similar Symptoms: No Recent Illness/Hospitalization: No CVD Risk Factors: Positive for Hypertension, Diabetes, Hypercholesterolemia and Family History 1' </=55 PE Risk Factors: Negative for Recent Travel/Surgery, Recent Immobilization, Prior DVT or PE, Cancer or OCP + Smoking + >/=35 TAD Risk Factors: Positive for Hypertension; Negative for Marfan's Syndrome or Family History [facility] Medical History Asthma Diabetes Hemorrhoids High cholesterol History of edema History of irregular heartbeat Hypertension Thyroid disease Home Medications clonidine HCl 0.1 mg tablet 1 tab PO BID htn 30 days #60 tabs 08/13/18 [History Last Taken 09/17/18] fluticasone 250 mcg-salmeterol 50 mcg/dose blistr powdr for inhalation (Advair Diskus) 1 inh inhalation BID PRN Shortness Of Breath 08/13/18 [History Last Taken Unknown] furosemide 20 mg tablet 1 tab PO DAILY 30 days #30 tabs 08/13/18 [History Last Taken Unknown] levothyroxine 112 mcg tablet 1 tab PO DAILY 30 days #30 tabs 08/13/18 [History Last Taken Unknown] lisinopril 10 mg tablet 0.5 tab PO DAILY 30 days #15 tabs 08/13/18 [History Last Taken 09/17/18] metoprolol succinate 50 mg tablet,extended release 24 hr 1.5 tab PO BID 30 days #90 tabs 08/13/18 [History Last Taken 09/17/18] simvastatin 80 mg tablet 1 tab PO QHS 30 days #30 tabs 08/13/18 [History Last Taken Unknown] venlafaxine 150 mg capsule,extended release 24 hr (Effexor XR) 150 mg PO DAILY 30 days #30 caps 08/13/18 [History Last Taken Unknown] albuterol sulfate 90 mcg/actuation aerosol inhaler 1 puff inhalation Q4H PRN PRN Sob &/Or Wheezing 09/11/18 [History Last Taken Unknown] loratadine 10 mg tablet (Allergy Relief (loratadine)) 10 mg PO DAILY 04/19/20 [History Last Taken Unknown] metformin 1,000 mg tablet 1,000 mg PO BID 04/19/20 [History Last Taken Unknown] multivitamin 1 tab PO DAILY 04/19/20 [History Last Taken Unknown] insulin glargine 100 unit/mL (3 mL) subcutaneous pen (Lantus Solostar U-100 Insulin) 38 unit subcut QHS 08/24/20 [History Last Taken Unknown] oxycodone-acetaminophen 5 mg-325 mg tablet (Percocet) 1 tab PO Q6H PRN pain 2 days #5 tabs 08/29/20 [Rx Last Taken Unknown] Allergy/AdvReac Type Severity Reaction Status Date / Time meperidine [From Demerol] Allergy Mild Other Verified 02/22/22 11:59 Sulfa (Sulfonamide Allergy Mild X Verified 02/22/22 11:59 Antibiotics) Family History Mother Colon cancer CAD (coronary artery disease) Father Heart disease Brother Bleeding disorder Cancer melanoma Grandmother CVA (cerebral vascular accident) Surgical History BLADDER SLING H/O partial thyroidectomy H/O right heart catheterization History of History of hysterectomy History of tonsillectomy Hx of colonoscopy Social History Smoking Status: Never smoker alcohol intake: never ROS ROS ED Constitutional Constitutional ED: Denies chills, fever(s), subjective or sweats Eyes Eyes: Reports none ENT ENT ED: Denies ear pain, rhinorrhea or sore throat Cardiovascular Cardiovascular: Reports as per HPI; Denies orthopnea or paroxysmal nocturnal dyspnea Respiratory/Chest Respiratory/Chest: Reports dyspnea and dyspnea on exertion; Denies cough, orthopnea, paroxysmal nocturnal dyspnea or sputum Gastrointestinal Gastrointestinal: Reports nausea; Denies abdominal pain, constipation, diarrhea, melena or vomiting Genitourinary Genitourinary ED: Denies dysuria, hematuria or urinary frequency Musculoskeletal Musculoskeletal: Denies arthralgias, back pain, myalgias or neck pain Integumentary Denies Abrasions or rash Neurologic Neurologic: Denies headache(s), paresthesias or weakness Psychiatric Psychiatric: Reports anxiety Endocrine Endocrinology: Denies cold intolerance or heat intolerance Hematologic/Lymphatic Hematologic/Lymphatic: Denies easy bleeding or easy bruising EXAM Physical Exam Const Vital Signs: 02/22/22 12:00 02/22/22 12:24 Temperature 97.1 F L Temperature Source Temporal Pulse Rate 70 Respiratory Rate 17 Blood Pressure 162/77 H Blood Pressure Mean 105 Pulse Ox 95 Oxygen Delivery Method Room Air Room Air Positive well nourished, well developed and obese General Appearance ED: well developed and NAD; Negative for pallor Nutritional Appearance: obese HEENT Reports moist mucous membranes HEENT Narrative: Head is normocephalic atraumatic. Ears normal. Nares patent. Eyes PERRL and EOMs intact bilaterally General Eye ED: Negative for pale conjunctiva or scleral icterus Neck no lymphadenopathy, supple and no JVD Chest Wall inspection of chest normal Resp normal respiratory effort and clear to auscultation bilaterally Cardio regular rate, regular rhythm, S1 normal heart sound, S2 normal heart sound and no murmurs GI normal to inspection, nondistended, normoactive bowel sounds, soft to palpation, non-tender, non-distended and no masses; Negative for hepatosplenomegaly GI Narrative: There is no palpable pulse style mass. Back/Spine no CVA tenderness Neuro oriented x3, CN's II-XII intact bilaterally and no sensory deficits noted Sensorium / Orientation: awake and alert Motor Exam: strength 5/5 throughout Psych mental status grossly normal Skin no rashes or lesions noted and no wounds General Skin Exam: Negative for jaundice or pallor Heart Score History: Highly Suspicious ECG: Normal Age: >45 - <65 years Risk Factors: >/= 3 Risk Factors or History of CAD Troponin: </= Normal Limit Score: 5 MDM MDM MDM Narrative Medical decision making narrative: Per emery criteria patient has classic angina. History is consistent with unstable angina/exertional angina. Patient was treated with aspirin. Appropriate blood work was obtained. Customer Support Representative was called regarding anticoagulation and use of Plavix. Will obtain chest x-ray to rule out any pulmonary pathology or CHF. Blood work to rule out anemia, assess renal function and determine troponin since this started 3 days ago. Spoke with beam carrier hauler pusher, Dr. Ramon, and discussed patient's history, physical and anticoagulation. He would like patient started on heparin. He would not like Plavix to be given. Call us and placed to the hospitalist for admission. Lab Data Attestation: I reviewed the patient's lab results. Lab results narrative: CBC is unremarkable. Basic metabolic panel [place] slight elevation in glucose, 124. First troponin is normal, 5. Labs: Laboratory Results - last 24 hr 02/22/22 02/22/22 12:30 12:30 WBC 10.4 RBC 4.61 Hgb 13.5 Hct 41.4 MCV 89.8 MCH 29.3 MCHC 32.6 RDW Std Deviation 43.7 RDW Coeff of [place] 13.4 Plt Count 289 MPV 9.6 Immature Gran % (Auto) 0.200 Neut % (Auto) 63.0 Lymph % (Auto) 26.5 [place] % (Auto) 5.9 Eos % (Auto) 3.8 Baso % (Auto) 0.6 Absolute Neuts (auto) 6.6 Absolute Lymphs (auto) 2.75 Nucleated RBC % 0 Sodium 140 Potassium 3.9 Chloride 107 Carbon Dioxide 30.0 Anion Gap 3 L BUN 10 Creatinine 0.61 Estim Creat Clear Calc 91.81 Est GFR (MDRD) Af Amer 129 Est GFR (MDRD) Non-Af 107 BUN/Creatinine Ratio 16.4 Glucose 124 H Calcium 9.1 Troponin I High Sens 5 Radiography Chest X-Ray - ED: 1 View and Read by ED Physician (Normal cardiac silhouette and size. Normal perihilar region. Lung parenchyma is unremarkable. [place] structures are unremarkable.) EKG Initial EKG: Attestation: I personally reviewed and interpreted this EKG as follows: Interpretation: Sinus Rhythm (Ventricular rate is 67. There is low voltage. There is decreased anterior force. CT interval is 172 ms. QS duration 78 ms. QT duration 390 ms. [place] is normal.) Prior: Unchanged (Dated May 18, 2011) Critical Care Time Critical Care Time: Yes Critical care time (excluding procedures): 30-74 minutes (32), Including time spent: (History, physical, documentation, review of prior records), Discussing w/Patient &/or Family/Numerical Control Tool Programmer, Discussing w/Consultants and Arranging Admission or Transfer Discharge Plan Dx/Rx/DC Orders Clinical Impression: Angina pectoris, unstable, HTN (hypertension), benign, DM2 (diabetes mellitus, type 2), HLD (hyperlipidemia) [facility]
[2022-02-22] MEDS: Aspirin 81 MG TAB.CHEW 324 MG PO (12:33)
[2022-02-22 12:37] LABS: Absolute Lymphocyte Count 2.75 X10^3/uL (0.83-4.51); Absolute Neutrophil Count 6.6 X10^3/uL (2.0-7.7); Basophil# 0.06 X10^3/uL; Basophil% 0.6 % (0-1); Eosinophils% 3.8 % (0-5); Hematocrit 41.4 % (37-47); Hemoglobin 13.5 g/dL (12.0-15.0); Lymphocyte # 2.75 X10^3/ul (0.83-4.51); Lymphocyte % 26.5 % (19-41); Mean Corp Hgb Conc 32.6 g/dL (32-36); Mean Corpuscular Hgb 29.3 pg (27.0-32.0); Mean Corpuscular Volume 89.8 fL (81-99); Mean Platelet Vol. 9.6 fl (6.2-12.0); Monocyte# 0.61 X10^3/uL; Monocyte% 5.9 % (0-10); NRBC Flagged by Analyzer 0 % (0-5); Neutrophil # 6.55 X10^3/uL (2.7-7.7); Platelet Count 289 K/mm3 (150-450); RBC Distribution Width CV 13.4 % (11.6-14.6); RBC Distribution Width SD 43.7 fl (35.1-43.9); Red Blood Count 4.61 M/mm3 (4.2-5.4); White Blood Count 10.4 K/mm3 (4.4-11.0)
[2022-02-22 12:58] LABS: Anion Gap 3 (5-15); BUN 10 mg/dL (7-18); BUN/Creat Ratio 16.4 RATIO (10-20); Calcium,Total 9.1 mg/dL (8.5-10.1); Chloride 107 mmol/L (98-107); Creatinine, Serum 0.61 mg/dL (0.55-1.02); EST Glomerular Filtration Rate 107 mL/min (>60); Est Glom Filt Rate - Afr Amer 129 mL/min (>60); Estimated Creatinine Clearance 91.81 ml/min; Glucose 124 mg/dL (74-106); Potassium 3.9 mmol/L (3.5-5.1); Sodium Level 140 mmol/L (136-145); Troponin-I HS (w/2H Reflex) 5 pg/mL (3.0-54.0)
--- NOTE | 2022-02-22 13:36 | ED.RN ---
Per Dr Cornejo, we are not doing the heparin
[2022-02-22 13:38] LABS: Prothrombin Time (Protime)PT. 12.9 SECONDS (11.7-14.9)
[2022-02-22 13:39] LABS: Partial Thromboplast Time 24.9 Seconds (24.1-36.2)
--- NOTE | 2022-02-22 13:46 | PCM.HP.STD ---
HPI - General General Date of Service: 02/22/22 Chief Complaint: Chest pain HPI Narrative TASIA CANDELARIA, is a 61 F who presents chest pain. Over the past 3 days, patient has been having exertional chest pain. Pain is midsternal and goes between her shoulder blades associated with diaphoresis, shortness of breath and nausea. When she stops the activity, the chest pain eventually resolves. Patient has never had anything like this in the past. Patient presented to the emergency room where her work-up was unremarkable with negative troponins and EKG. [facility] Medical History (Updated 02/22/22 @ 13:[address] Hector Cornejo, DO) Asthma Bronchitis Diabetes Hemorrhoids High cholesterol History of edema History of irregular heartbeat Hypertension Thyroid disease Vitamin D deficiency Home Medications clonidine HCl 0.1 mg tablet 1 tab PO BID htn 30 days #60 tabs 08/13/18 [History Last Taken 09/17/18] fluticasone 250 mcg-salmeterol 50 mcg/dose blistr powdr for inhalation (Advair Diskus) 1 inh inhalation BID PRN Shortness Of Breath 08/13/18 [History Last Taken Unknown] furosemide 20 mg tablet 1 tab PO DAILY 30 days #30 tabs 08/13/18 [History Last Taken Unknown] levothyroxine 112 mcg tablet 1 tab PO DAILY 30 days #30 tabs 08/13/18 [History Last Taken Unknown] lisinopril 10 mg tablet 0.5 tab PO DAILY 30 days #15 tabs 08/13/18 [History Last Taken 09/17/18] metoprolol succinate 50 mg tablet,extended release 24 hr 1.5 tab PO BID 30 days #90 tabs 08/13/18 [History Last Taken 09/17/18] simvastatin 80 mg tablet 1 tab PO QHS 30 days #30 tabs 08/13/18 [History Last Taken Unknown] venlafaxine 150 mg capsule,extended release 24 hr (Effexor XR) 150 mg PO DAILY 30 days #30 caps 08/13/18 [History Last Taken Unknown] albuterol sulfate 90 mcg/actuation aerosol inhaler 1 puff inhalation Q4H PRN PRN Sob &/Or Wheezing 09/11/18 [History Last Taken Unknown] loratadine 10 mg tablet (Allergy Relief (loratadine)) 10 mg PO DAILY 04/19/20 [History Last Taken Unknown] metformin 1,000 mg tablet 1,000 mg PO BID 04/19/20 [History Last Taken Unknown] multivitamin 1 tab PO DAILY 04/19/20 [History Last Taken Unknown] insulin glargine 100 unit/mL (3 mL) subcutaneous pen (Lantus Solostar U-100 Insulin) 38 unit subcut QHS 08/24/20 [History Last Taken Unknown] oxycodone-acetaminophen 5 mg-325 mg tablet (Percocet) 1 tab PO Q6H PRN pain 2 days #5 tabs 08/29/20 [Rx Last Taken Unknown] Allergy/AdvReac Type Severity Reaction Status Date / Time meperidine [From Demerol] Allergy Mild Other Verified 02/22/22 11:59 Sulfa (Sulfonamide Allergy Mild X Verified 02/22/22 11:59 Antibiotics) Family History Mother Colon cancer CAD (coronary artery disease) Father Heart disease Brother Bleeding disorder Cancer melanoma Grandmother CVA (cerebral vascular accident) Surgical History BLADDER SLING H/O partial thyroidectomy H/O right heart catheterization History of History of hysterectomy History of tonsillectomy Hx of colonoscopy Social History Smoking Status: Never smoker alcohol intake: never ROS ROS Narrative Takes furosemide for edema. No current edema. No history of VTE. No bleeding problems, including: No hematochezia, melena or easy bruising. All review of systems were negative except as mentioned above in the history of present illness and the other review of systems. Vital Signs Vital Signs Vital Signs: 02/22/22 12:00 02/22/22 12:24 Temperature 36.2 C L Temperature Source Temporal Pulse Rate 70 Respiratory Rate 17 Blood Pressure 162/77 H Blood Pressure Mean 105 Pulse Ox 95 Oxygen Delivery Method Room Air Room Air Weight Weight: 108.545 kg Body Mass Index (BMI) 38.6 Physical Exam Const alert and no apparent distress Neck no lymphadenopathy Resp normal respiratory effort, no retractions, no use of accessory muscles and clear to auscultation bilaterally Cardio regular rate, regular rhythm, S1 normal heart sound and S2 normal heart sound GI normal to inspection, nondistended, normoactive bowel sounds, soft to palpation, non-tender and non-distended Extremity normal to inspection and no clubbing, cyanosis or edema Neuro moves all extremities and no focal motor deficits Psych affect normal Results Lab / Micro Data Attestation: I reviewed the patient's lab results. Result Diagrams: 02/22/22 12:30 02/22/22 12:30 Labs: Laboratory Results - last 24 hr 02/22/22 12:30: WBC 10.4, RBC 4.61, Hgb 13.5, Hct 41.4, MCV 89.8, MCH 29.3, MCHC 32.6, RDW Std Deviation 43.7, RDW Coeff of [place] 13.4, Plt Count 289, MPV 9.6, Immature Gran % (Auto) 0.200, Neut % (Auto) 63.0, Lymph % (Auto) 26.5, [place] % (Auto) 5.9, Eos % (Auto) 3.8, Baso % (Auto) 0.6, Absolute Neuts (auto) 6.6, Absolute Lymphs (auto) 2.75, Nucleated RBC % 0 02/22/22 12:30: Sodium 140, Potassium 3.9, Chloride 107, Carbon Dioxide 30.0, Anion Gap 3 L, BUN 10, Creatinine 0.61, Estim Creat Clear Calc 91.81, Est GFR (MDRD) Af Amer 129, Est GFR (MDRD) Non-Af 107, BUN/Creatinine Ratio 16.4, Glucose 124 H, Calcium 9.1, Troponin I High Sens 5 02/22/22 12:30: PT 12.9, INR 1.0, APTT 24.9 EKG Initial EKG: Attestation: I personally reviewed and interpreted this EKG as follows: Prior EKG tracings: available for review EKG Rhythm Intrepretation: Sinus Rhythm Radiology Impression Chest X-Ray 02/22/22 12:14 IMPRESSION: Degenerative changes, as described above. No demonstrated acute cardiopulmonary process. Electronically Signed: Antonio Barbosa MD at 13:40 EST , Assessment & Plan Assessment/Plan (1) Stable angina: PLAN: Patient has classic findings of stable angina with exertional chest pain that resolves when she stops the activity. Fortunately no evidence of myocardial infarction at this time. Discussed with Dr. Ramon. He recommends anticoagulation. He is okay with patient being on enoxaparin so I have canceled the heparin drip that was ordered by the emergency room. He also recommended getting an echocardiogram. Based on the results determine nation will be made if the patient is to have a cardiac catheterization during this hospitalization or if to have further outpatient work-up including a stress test. If patient does require cardiac catheterization, if she remained stable, then that likely would not be performed until . Patient was made aware of this possibility. Cardiology will be consulted we will make further recommendations upon their follow-up. (2) Vitamin D deficiency: PLAN: Back in March vitamin D level is around 25. We will recheck. (3) DM2 (diabetes mellitus, type 2): PLAN: Continue with basal insulin and metformin Add sliding scale Check an A1c PLAN: Plan Chronic stable conditions Hypothyroidism: Continue levothyroxine Hypertension: Continue lisinopril and clonidine Hyperlipidemia: Continue with statin Chronic bronchitis: On room air. Continue with fluticasone/salmeterol VTE prophylaxis: Not indicated as patient is anticoagulated. Charges/Coding Visit Charges Inpatient E&M: 18945 Init Hosp L3
[2022-02-22 14:33] LABS: Reflex Troponin-HS? (from REC) Y
--- NOTE | 2022-02-22 15:01 | EKG12_ITS ---
Test Reason : ADMIT Blood Pressure : / mmHG Vent. Rate : 063 BPM Atrial Rate : 063 BPM P-R Int : 190 ms QRS Dur : 072 ms QT Int : 430 ms P-R-T Axes : 049 011 044 degrees QTc Int : 440 ms Normal sinus rhythm Low voltage QRS Septal infarct , age undetermined Abnormal ECG Confirmed by LYLA POTTS, ILANA ([id number]), tape editor ANGELITA SHEETS ([id number]) on 02/28/2022 8:23:28 AM Referred By: Confirmed By:ILANA ARITA MD
--- NOTE | 2022-02-22 15:01 | ECHOCS_ITS ---
Reason For Study: Angina Procedure This was a 2D Doppler, Color Flow transthoracic echocardiogram. Contrast injection was performed. Exam performed portable in ED. Left Ventricle Normal left ventricle. The estimated ejection fraction is 55-60 %. Right Ventricle Normal right ventricle. Normal systolic function. Atria Normal left atrium. Normal right atrium. Mitral Valve Anterior leaflet diffuse mitral valve thickening. Mild (1+) eccentric mitral valve insufficiency. Tricuspid Valve Normal tricuspid valve. Trivial tricuspid valve insufficiency. Aortic Valve Normal aortic valve. Pulmonic Valve The pulmonic valve is not well visualized. Great Vessels Normal aortic root. Pericardium/Pleural No pericardial effusion. Medication Diluted definity 2.5ml given slow IV push to enhance endocardial definition. MMode/2D Measurements & Calculations LVIDd: 5.1 cm IVSd: 1.2 cm Ao root diam: 3.4 cm LVIDs: 3.2 cm LVPWd: 1.2 cm RVDd: 2.9 cm FS: 37.6 % LAV(MOD-bp): 53.5 ml LVAd ap4: 34.0 cm2 SV(MOD-sp4): 71.4 ml LAV(MOD-bp) Indexed: 24.8 ml/m2 LVLd ap4: 8.1 cm LAV(MOD-sp2): 58.5 ml EDV(MOD-sp4): 117.0 ml LAV(MOD-sp4): 47.9 ml EDV(sp4-el): 120.7 ml LVAs ap4: 20.0 cm2 LVLs ap4: 7.4 cm ESV(MOD-sp4): 45.6 ml ESV(sp4-el): 46.0 ml EF(MOD-sp4): 61.0 % EF(sp4-el): 61.9 % SV(sp4-el): 74.6 ml LA A4 area: 18.3 cm2 LA dimension(2D): 3.9 cm RA A4 area: 9.9 cm2 Doppler Measurements & Calculations MV E max daryl: 69.6 cm/sec Lat Peak E' Daryl: 8.4 cm/sec Med Peak E' Daryl: 6.6 cm/sec MV A max daryl: 106.2 cm/sec E/E' lat: 8.3 E/E' med: 10.6 MV E/A: 0.66 Ao V2 max: 149.1 cm/sec LV V1 max: 125.6 cm/sec PA V2 max: 102.0 cm/sec Ao max P.9 mmHg LV V1 max P.3 mmHg Ao V2 mean: 105.4 cm/sec Ao mean P.8 mmHg Ao V2 VTI: 32.7 cm TR max daryl: 227.0 cm/sec TR max P.6 mmHg ECHO/Echo Complete W/ Contrast Interpretation Summary The estimated ejection fraction is 55-60 %. Ordering Physician: Hector Cornejo Referring Physician: Zoë Payton Performed By: Josephine Ro, HERMILA, RVT
--- NOTE | 2022-02-22 15:54 | CT_ITS ---
STUDY: CTA CHEST REASON FOR EXAM: Female, 61 years old. chest/back pain RADIATION DOSAGE (If Supplied By Facility): CTDIvol = ( 13.85 ) mGy, DLP = ( 516.40 ) mGycm TECHNIQUE: The examination was performed with the intravenous administration of IV 100mL Isovue-370. Post-processing of the angiographic images was performed, with multiplanar reformation and 3D reconstruction. Individualized dose optimization techniques were used for this CT. COMPARISON: None. FINDINGS: Normal enhancement of the main pulmonary artery and right and left pulmonary arteries. Normal enhancement of the bilateral peripheral pulmonary arteries. There is no demonstrated pulmonary embolism. Normal thoracic aorta and visualized great vessels. There is no demonstrated aortic dissection. Normal heart and pericardium. Normal mediastinum. Normal hilar regions. Normal visualized trachea and bronchi. The lungs are well expanded. Normal pulmonary parenchyma. Normal pleura. Normal chest wall structures. Normal osseous structures. Normal visualized upper abdomen. CT/CTA Chest W/WO Contrast IMPRESSION: Normal CTA chest examination, without a demonstrated pulmonary embolism or arterial dissection. Electronically Signed: Ravi Villela MD at 16:57 EST ,
[2022-02-22 16:58] LABS: Troponin-I HS 5 pg/mL (3.0-54.0)
[2022-02-22 17:35] LABS: Bedside Glucose 78 mg/dL (74-106)
[2022-02-22] MEDS: Enoxaparin 120 MG/0.8 ML Syringe 110 MG SC (17:35)
--- NOTE | 2022-02-22 18:17 | PCM.CONS.C ---
Assessment & Plan Assessment/Plan (1) Stable angina: (2) HLD (hyperlipidemia): (3) DM2 (diabetes mellitus, type 2): (4) HTN (hypertension), benign: PLAN: Plan I saw this patient in the ER She is 61-year-old with multiple risk factor for CAD Also she has significant family history of CAD Her father at younger age with massive [place] Her mother has coronary artery disease and elder brother had also CAD She had a history of hypertension, type 2 diabetes mellitus, hyperlipidemia, she presenting with atypical symptoms of midsternal chest pain with some radiation to the shoulder blades Cardiac exam essentially normal Cardiac care plan recommendations; I reviewed the current evaluation which include the EKG showed no significant ST?the abnormalities CTA chest showed no evidence of pulm embolism or aortic dissection Initial set of cardiac biomarker with high sensitive troponin within normal 2. From cardiac standpoint recommendation would be to evaluate with myocardial fusion study this can be set up as an outpatient if she remains stable clinically, during this admission. Patient has no prior cardiac evaluation 3. We will review the echocardiogram. HPI Consult Data Date of Consult: 02/22/22 Attending Care Provider: 69-year-old female who presented with symptoms of chest pain for the last 3 days described as retrosternal exertional chest discomfort with radiation to her shoulder blades symptoms have been associated with shortness of breath. Also she admitted that her symptoms resolved with rest. HPI Narrative Reason for Consultation: Chest pain evaluation/unstable angina HPI Narrative: TASIA CANDELARIA, is a 61 F who presents [facility] Medical History (Updated 02/22/22 @ 13:[address] Hector Cornejo, DO) Asthma Bronchitis Diabetes Hemorrhoids High cholesterol History of edema History of irregular heartbeat Hypertension Thyroid disease Vitamin D deficiency Home Medications clonidine HCl 0.1 mg tablet 1 tab PO BID htn 30 days #60 tabs 08/13/18 [History Last Taken 09/17/18] fluticasone 250 mcg-salmeterol 50 mcg/dose blistr powdr for inhalation (Advair Diskus) 1 inh inhalation BID PRN Shortness Of Breath 08/13/18 [History Last Taken Unknown] furosemide 20 mg tablet 1 tab PO DAILY Check with primary doctor 30 days #30 tabs 08/13/18 [History Last Taken Unknown] levothyroxine 112 mcg tablet 1 tab PO DAILY Check with primary doctor 30 days #30 tabs 08/13/18 [History Last Taken Unknown] lisinopril 10 mg tablet 0.5 tab PO DAILY Check with primary doctor 30 days #15 tabs 08/13/18 [History Last Taken 09/17/18] metoprolol succinate 50 mg tablet,extended release 24 hr 1.5 tab PO BID Check with primary doctor 30 days #90 tabs 08/13/18 [History Last Taken 09/17/18] simvastatin 80 mg tablet 1 tab PO QHS Check with primary doctor 30 days #30 tabs 08/13/18 [History Last Taken Unknown] venlafaxine 150 mg capsule,extended release 24 hr (Effexor XR) 150 mg PO DAILY Check with primary doctor 30 days #30 caps 08/13/18 [History Last Taken Unknown] albuterol sulfate 90 mcg/actuation aerosol inhaler 1 puff inhalation Q4H PRN PRN Sob &/Or Wheezing 09/11/18 [History Last Taken Unknown] loratadine 10 mg tablet (Allergy Relief (loratadine)) 10 mg PO DAILY Check with primary doctor 04/19/20 [History Last Taken Unknown] metformin 1,000 mg tablet 1,000 mg PO BID Check with primary doctor 04/19/20 [History Last Taken Unknown] multivitamin 1 tab PO DAILY Check with primary doctor 04/19/20 [History Last Taken Unknown] insulin glargine 100 unit/mL (3 mL) subcutaneous pen (Lantus Solostar U-100 Insulin) 36 unit subcut QHS Check with primary doctor 08/24/20 [History Last Taken Unknown] Allergy/AdvReac Type Severity Reaction Status Date / Time meperidine [From Demerol] Allergy Mild Other Verified 02/22/22 11:59 Sulfa (Sulfonamide Allergy Mild X Verified 02/22/22 11:59 Antibiotics) Family History Mother Colon cancer CAD (coronary artery disease) Father Heart disease Brother Bleeding disorder Cancer melanoma Grandmother CVA (cerebral vascular accident) Surgical History BLADDER SLING H/O partial thyroidectomy H/O right heart catheterization History of History of hysterectomy History of tonsillectomy Hx of colonoscopy Social History Smoking Status: Never smoker alcohol intake: never ROS ROS Narrative 14 point review of system is unremarkable apart from her current presentation with chest pain Typical of angina Physical Exam Cardio Cardio Narrative: Cardiac rhythm is normal sinus Cardiovascular exam S1-S2 is regular Chest exam is clear to auscultation bilaterally Risk Stratification Risk Stratification Applicable: Yes Age >/= 65: No >/= 3 CAD Risk Factors (HTN, HLD, DM, family hx of CAD, or current smoker): No Aspirin Use in the Past 7 Days: No Severe Angina (>/= episodes in 24 hours): Yes EKG ST Changes >/= 0.5mm: No Positive Cardiac Marker: No MALLORY Risk Stratification Score: 1 MALLORY % Risk: 5% Risk Objective Data Vital Signs: Vital Signs Temp Pulse Resp BP Pulse Ox O2 Del Method 97.8 F 64 19 H 152/71 H 97 Room Air 02/22/22 17:14 02/22/22 17:14 02/22/22 17:14 02/22/22 17:14 02/22/22 17:14 02/22/22 17:14 Oxygen Delivery Method Room Air Weight: 239 lb 4.8 oz Body Mass Index (BMI) 38.6 Lab / Micro Data Result Diagrams: 02/22/22 12:30 02/22/22 12:30 Labs: Laboratory Results - last 24 hr 02/22/22 12:30: WBC 10.4, RBC 4.61, Hgb 13.5, Hct 41.4, MCV 89.8, MCH 29.3, MCHC 32.6, RDW Std Deviation 43.7, RDW Coeff of [place] 13.4, Plt Count 289, MPV 9.6, Immature Gran % (Auto) 0.200, Neut % (Auto) 63.0, Lymph % (Auto) 26.5, [place] % (Auto) 5.9, Eos % (Auto) 3.8, Baso % (Auto) 0.6, Absolute Neuts (auto) 6.6, Absolute Lymphs (auto) 2.75, Nucleated RBC % 0 02/22/22 12:30: Sodium 140, Potassium 3.9, Chloride 107, Carbon Dioxide 30.0, Anion Gap 3 L, BUN 10, Creatinine 0.61, Estim Creat Clear Calc 91.81, Est GFR (MDRD) Af Amer 129, Est GFR (MDRD) Non-Af 107, BUN/Creatinine Ratio 16.4, Glucose 124 H, Calcium 9.1, Troponin I High Sens 5 02/22/22 12:30: PT 12.9, INR 1.0, APTT 24.9 02/22/22 16:10: Troponin I High Sens 5 02/22/22 17:18: POC Glucose 78 Cardiology Labs/Tests 02/22/22 12:30: WBC 10.4, RBC 4.61, Hgb 13.5, Hct 41.4, MCV 89.8, MCH 29.3, MCHC 32.6, Plt Count 289, MPV 9.6, Immature Gran % (Auto) 0.200, Neut % (Auto) 63.0, Lymph % (Auto) 26.5, [place] % (Auto) 5.9, Eos % (Auto) 3.8, Baso % (Auto) 0.6, Absolute Neuts (auto) 6.6, Nucleated RBC % 0 02/22/22 12:30: Sodium 140, Potassium 3.9, Chloride 107, Carbon Dioxide 30.0, Anion Gap 3 L, BUN 10, Creatinine 0.61, Est GFR (MDRD) Af Amer 129, Est GFR (MDRD) Non-Af 107, BUN/Creatinine Ratio 16.4, Glucose 124 H, Calcium 9.1 02/22/22 12:30: PT 12.9, INR 1.0, APTT 24.9 Rhythm: EKG: ECHO: Stress Test: Cardiac Cath: PCI: CT Surgery: Holter monitor: EPS: PPM: CXR: Chest CT Scan: Radiography Diagnostic Testing: Radiology Impression Chest X-Ray 02/22/22 12:14 IMPRESSION: Degenerative changes, as described above. No demonstrated acute cardiopulmonary process. Electronically Signed: Antonio Barbosa MD at 13:40 EST , Chest CTA 02/22/22 15:54 IMPRESSION: Normal CTA chest examination, without a demonstrated pulmonary embolism or arterial dissection. Electronically Signed: Ravi Villela MD at 16:57 EST ,
[2022-02-22 19:01] LABS: Troponin-I HS 5 pg/mL (3.0-54.0)
[2022-02-22] MEDS: metFORMIN HCl 1,000 MG Tablet 1000 MG PO (22:31)
[2022-02-22] MEDS: Metoprolol(XL)Succ 50 MG Tablet 75 MG PO (22:31)
[2022-02-22] MEDS: cloNIDine HCl 0.1 MG Tablet PO (22:33)
[2022-02-22] MEDS: Atorvastatin Calcium 40 MG Tablet PO (22:33)
[2022-02-22 23:26] LABS: Bedside Glucose 94 mg/dL (74-106)
[2022-02-23] VITALS (7 sets, daily range): BP systolic 133–146; BP diastolic 66–80; PULSE 56–67; RESP 16–18; TEMP 36.6–36.8; O2SAT 94–96
[2022-02-23 05:40] LABS: Absolute Lymphocyte Count 3.43 X10^3/uL (0.83-4.51); Absolute Neutrophil Count 7.1 X10^3/uL (2.0-7.7); Basophil# 0.06 X10^3/uL; Basophil% 0.5 % (0-1); Eosinophil# 0.46 X10^3/uL; Eosinophils% 3.9 % (0-5); Hematocrit 40.8 % (37-47); Lymphocyte # 3.43 X10^3/ul (0.83-4.51); Lymphocyte % 29.2 % (19-41); Mean Corp Hgb Conc 31.9 g/dL (32-36); Mean Corpuscular Hgb 28.8 pg (27.0-32.0); Mean Corpuscular Volume 90.3 fL (81-99); Mean Platelet Vol. 9.8 fl (6.2-12.0); NRBC Flagged by Analyzer 0 % (0-5); Neutrophil # 7.05 X10^3/uL (2.7-7.7); Neutrophil % 60.1 % (47-70); Platelet Count 280 K/mm3 (150-450); RBC Distribution Width CV 13.4 % (11.6-14.6); RBC Distribution Width SD 44.2 fl (35.1-43.9); Red Blood Count 4.52 M/mm3 (4.2-5.4); White Blood Count 11.7 K/mm3 (4.4-11.0)
[2022-02-23 06:05] LABS: Anion Gap 4 (5-15); BUN 10 mg/dL (7-18); BUN/Creat Ratio 15.7 RATIO (10-20); Calcium,Total 8.8 mg/dL (8.5-10.1); Chloride 105 mmol/L (98-107); Cholesterol 123 mg/dL (200); Creatinine, Serum 0.64 mg/dL (0.55-1.02); EST Glomerular Filtration Rate 101 mL/min (>60); Est Glom Filt Rate - Afr Amer 123 mL/min (>60); Estimated Creatinine Clearance 87.51 ml/min; Glucose 94 mg/dL (74-106); High Density Lipoprotein 33 mg/dL; Potassium 4.1 mmol/L (3.5-5.1); Sodium Level 139 mmol/L (136-145); Triglycerides 250 mg/dL; Very Low Density Lipoprotein 50 mg/dL (5-40)
[2022-02-23] MEDS: Levothyroxine 112 MCG Tablet PO (06:19)
[2022-02-23 07:11] LABS: Bedside Glucose 106 mg/dL (74-106)
[2022-02-23] MEDS: Enoxaparin 120 MG/0.8 ML Syringe 110 MG SC (10:40)
[2022-02-23] MEDS: Lisinopril 5 MG Tablet PO (10:41)
[2022-02-23] MEDS: cloNIDine HCl 0.1 MG Tablet PO (10:41)
[2022-02-23] MEDS: metFORMIN HCl 1,000 MG Tablet 1000 MG PO (10:41)
[2022-02-23] MEDS: Aspirin E.C. 81 MG Tablet PO (10:41)
[2022-02-23] MEDS: Furosemide 20 MG Tablet PO (10:42)
[2022-02-23] MEDS: Metoprolol(XL)Succ 50 MG Tablet 75 MG PO (10:42)
[2022-02-23] MEDS: Loratadine 10 MG Tablet PO (10:42)
[2022-02-23] MEDS: Multivitamins,Therapeutic Tablet 1 TABLET PO (10:43)
[2022-02-23] MEDS: Venlafaxine XR 150 MG Capsule PO (10:43)
--- NOTE | 2022-02-23 10:55 | CASEMGMT ---
RN CM Face to Face with patient for initial transition planning/care coordination assessment. RN CM introduced self and role at [facility]. Patient lying in bed, alert and oriented. Patient willing to participate in assessment and is able to answer all questions appropriately. Care providers, pharmacy, and demographics verified. Patient wishes to discharge home, denies need for home health at this time. Patient states he has no further needs or concerns at this time. CM to follow for discharge planning needs that may arise. PCP: Tata Specialists: Ralph, harness tierLuzma Preferred Pharmacy: [facility] Insurance: Amanda Prescription Benefit:yes Living Will/HPOA: none LNOK: , daughter Living Arrangements: Patient lives with in a single story home with 3 steps and railing to enter the home. Patient states she is independent at home. Transportation: self, DME/HHC: Patient states she has raised toilet at home. No previous HHC Disposition Plan: Patient to discharge home with family support and follow-up plans in place. Sierra IYER, RN, CM
[2022-02-23] MEDS: Insulin Lispro 100 UNIT/ML INSULN.PEN SC (11:15)
[2022-02-23 11:55] LABS: Bedside Glucose 229 mg/dL (74-106)
--- NOTE | 2022-02-23 13:06 | PCM.DC ---
Discharge Instructions Diet Discharge Diet: No restrictions Activity Discharge Activity: Return to Normal Activity Follow Up Care Test Results: Test results from this visit will be discussed in further detail at your follow-up appointment, if applicable. Discharge Plan Admission Admit Date/Time: 02/22/22 13:39 Primary Reason for Your Visit: Chest pain Attending Provider: Elvira Medrano Primary Care Provider: Zoë Payton Consulting Providers: Braeden Ramon ; Hector Cornejo Instructions Patient Instructions: ED Heart Disease Risk Factors Additional Instructions / Restrictions: *Please take this with you to your next doctors appointment* ?Please continue your home medications upon discharge ? It will be important that you follow-up with cardiology upon discharge and have an outpatient stress test. Contact information will be provided, please call to schedule your hospital follow-up appointment -Please call your primary care provider's office upon discharge to schedule a hospital follow up within 1 week. -For any concerning signs or symptoms please call 911 or proceed to the nearest emergency department Discharge Orders/Prescriptions Prescriptions: Continued clonidine HCl 0.1 mg tablet 1 tab PO BID 30 Days Qty: 60 metoprolol succinate 50 mg tablet extended release 24 hr 1.5 tab PO BID 30 Days Qty: 90 venlafaxine [Effexor XR] 150 mg capsule,extended release 24hr 150 mg PO DAILY 30 Days Qty: 30 lisinopril 10 mg tablet 0.5 tab PO DAILY 30 Days Qty: 15 simvastatin 80 mg tablet 1 tab PO QHS 30 Days Qty: 30 furosemide 20 mg tablet 1 tab PO DAILY 30 Days Qty: 30 levothyroxine 112 mcg tablet 1 tab PO DAILY 30 Days Qty: 30 fluticasone propion-salmeterol [Advair Diskus] 250-50 mcg/dose blister with device 1 inh INHALATION BID PRN (Reason: Shortness Of Breath) metformin 1,000 mg tablet 1,000 mg PO BID loratadine [Allergy Relief (loratadine)] 10 mg tablet 10 mg PO DAILY multivitamin Tablet 1 tab PO DAILY albuterol sulfate 1 INHALER inhaler 1 puff inhalation Q4H PRN PRN (Reason: Sob &/Or Wheezing) insulin glargine [Lantus Solostar U-100 Insulin] 100 unit/mL (3 mL) insulin pen 36 unit SUBCUT QHS Referrals / Follow Up: Braeden Ramon MD [Med Staff - Active Staff] - Within 2 Weeks (Please call the traffic engineering director office upon discharge to schedule hospital follow-up appointment and according to your outpatient stress test) Zoë Payton MD [Primary Care Provider] - Within 1 Week Disposition Disposition (needs filled in before D/C Order can be placed): Home, Self Care
--- NOTE | 2022-02-23 13:12 | DS.PCM_ITS ---
Providers Date of Admission: 02/22/22 Date of Discharge: 02/23/22 Primary Care Physician: Dr. Zoë Payton MD Consultations 02/22/22 15:01 Consult: Cardiology Routine Consulting Provider: Braeden Ramon Reason for Consult: Chest Pain EMERGENT Consult: No MD Notified: Yes Date Notified: 02/22/22 Time Notified: 13:42 Method of Notification: Verbal Reason For Visit: STABLE ANGINA Diagnosis Discharge Diagnosis (1) Stable angina: Status: Acute Code(s): I20.8 - Other forms of angina pectoris (2) HLD (hyperlipidemia): Status: Chronic Code(s): E78.5 - Hyperlipidemia, unspecified (3) DM2 (diabetes mellitus, type 2): Status: Chronic Code(s): E11.9 - Type 2 diabetes mellitus without complications (4) HTN (hypertension), benign: Status: Chronic Code(s): I10 - Essential (primary) hypertension Medications at Discharge Home Medications clonidine HCl 0.1 mg tablet 1 tab PO BID htn 30 days #60 tabs 08/13/18 fluticasone 250 mcg-salmeterol 50 mcg/dose blistr powdr for inhalation (Advair [place]) 1 inh inhalation BID PRN Shortness Of Breath 08/13/18 furosemide 20 mg tablet 1 tab PO DAILY diuretic 30 days #30 tabs 08/13/18 levothyroxine 112 mcg tablet 1 tab PO DAILY thyroid 30 days #30 tabs 08/13/18 lisinopril 10 mg tablet 0.5 tab PO DAILY blood pressure 30 days #15 tabs 08/13/18 metoprolol succinate 50 mg tablet,extended release 24 hr 1.5 tab PO BID blood pressure 30 days #90 tabs 08/13/18 simvastatin 80 mg tablet 1 tab PO QHS cholesterol 30 days #30 tabs 08/13/18 venlafaxine 150 mg capsule,extended release 24 hr (Effexor XR) 150 mg PO DAILY mental health 30 days #30 caps 08/13/18 albuterol sulfate 90 mcg/actuation aerosol inhaler 1 puff inhalation Q4H PRN PRN Sob &/Or Wheezing 09/11/18 loratadine 10 mg tablet (Allergy Relief (loratadine)) 10 mg PO DAILY allergies 04/19/20 metformin 1,000 mg tablet 1,000 mg PO BID diabetes 04/19/20 multivitamin 1 tab PO DAILY vitamin 04/19/20 insulin glargine 100 unit/mL (3 mL) subcutaneous pen (Lantus Solostar U-100 Insulin) 36 unit subcut QHS diabetes 08/24/20 Hospital Course Procedures Transesophageal Echo Summary of Care Provided Minutes Spent on Discharge: 25 Hospital Course: Patient is a 7-year-old female with history of asthma, diabetes, hypertension who presented to [facility] 02/22/2022 with chest pain for 3 days which was exertional and midsternal with some shortness of breath and nausea. She presented to the emergency room and troponins were negative and EKG unremarkable. Did have significant family history however and concerning description and the case was discussed with Dr. Ramon who recommended anticoagulation. Echo obtained which was normal and she had no further episodes of chest pain and requested to go home, cardiology agreeable to outpatient stress test. On day of discharge she denied shortness of breath or chest pain, no physical complaints. Agreeable to following up outpatient Physical Exam Const alert and oriented x3 General Appearance: cooperative and comfortable HEENT normocephalic and head/scalp atraumatic Eyes EOMs intact bilaterally Neck supple Resp normal respiratory effort and clear to auscultation bilaterally Cardio regular rate and regular rhythm GI soft to palpation, non-tender and non-distended Extremity normal to inspection Skin no rashes or lesions noted Neuro moves all extremities Psych affect normal Weight / BMI Weight Weight: 108.545 kg Body Mass Index (BMI) 38.6 ABG / Lab / Microbiology Data Result Diagrams: 02/23/22 05:10 02/23/22 05:10 Laboratory: Laboratory Results - last 24 hr 02/22/22 12:30: PT 12.9, INR 1.0, APTT 24.9 02/22/22 16:10: Troponin I High Sens 5 02/22/22 17:18: POC Glucose 78 02/22/22 18:28: Troponin I High Sens 5 02/22/22 22:30: POC Glucose 94 02/23/22 05:10: WBC 11.7 H, RBC 4.52, Hgb 13.0, Hct 40.8, MCV 90.3, MCH 28.8, MCHC 31.9 L, RDW Std Deviation 44.2 H, RDW Coeff of [place] 13.4, Plt Count 280, MPV 9.8, Immature Gran % (Auto) 0.300, Neut % (Auto) 60.1, Lymph % (Auto) 29.2, [place] % (Auto) 6.0, Eos % (Auto) 3.9, Baso % (Auto) 0.5, Absolute Neuts (auto) 7.1, Absolute Lymphs (auto) 3.43, Nucleated RBC % 0 02/23/22 05:10: Sodium 139, Potassium 4.1, Chloride 105, Carbon Dioxide 30.0, Anion Gap 4 L, BUN 10, Creatinine 0.64, Estim Creat Clear Calc 87.51, Est GFR (MDRD) Af Amer 123, Est GFR (MDRD) Non-Af 101, BUN/Creatinine Ratio 15.7, Glucose 94, Calcium 8.8, Triglycerides 250 H, Cholesterol 123, LDL Cholesterol 40, VLDL Cholesterol 50 H, HDL Cholesterol 33 L 02/23/22 05:10: Hemoglobin A1c 7.0 H 02/23/22 06:19: POC Glucose 106 02/23/22 11:10: POC Glucose 229 H Radiography Diagnostic Testing: Radiology Impression Chest X-Ray 02/22/22 12:14 IMPRESSION: Degenerative changes, as described above. No demonstrated acute cardiopulmonary process. Electronically Signed: Antonio Barbosa MD at 13:40 EST , Echocardiogram 02/22/22 15:01 Interpretation Summary The estimated ejection fraction is 55-60 %. Ordering Physician: Hector Cornejo Referring Physician: Zoë Payton Performed By: Josephine Ro, HERMILA, RVT Chest CTA 02/22/22 15:54 IMPRESSION: Normal CTA chest examination, without a demonstrated pulmonary embolism or arterial dissection. Electronically Signed: Ravi Villela MD at 16:57 EST , D/C Instructions Discharge Diet: No restrictions Meaningful Use Info Meaningful Use Diagnoses (Choose all that apply): None applicable Discharge Plan Admission Admit Date/Time: 02/22/22 13:39 Primary Reason for Your Visit: Chest pain Attending Provider: Elvira Medrano Primary Care Provider: Zoë Payton Consulting Providers: Braeden Ramno ; Hector Cornejo Instructions Patient Instructions: ED Heart Disease Risk Factors Additional Instructions / Restrictions: *Please take this with you to your next doctors appointment* ?Please continue your home medications upon discharge ? It will be important that you follow-up with cardiology upon discharge and have an outpatient stress test. Contact information will be provided, please call to schedule your hospital follow-up appointment -Please call your primary care provider's office upon discharge to schedule a hospital follow up within 1 week. -For any concerning signs or symptoms please call 911 or proceed to the nearest emergency department Discharge Orders/Prescriptions Prescriptions: Continued clonidine HCl 0.1 mg tablet 1 tab PO BID 30 Days Qty: 60 metoprolol succinate 50 mg tablet extended release 24 hr 1.5 tab PO BID 30 Days Qty: 90 venlafaxine [Effexor XR] 150 mg capsule,extended release 24hr 150 mg PO DAILY 30 Days Qty: 30 lisinopril 10 mg tablet 0.5 tab PO DAILY 30 Days Qty: 15 simvastatin 80 mg tablet 1 tab PO QHS 30 Days Qty: 30 furosemide 20 mg tablet 1 tab PO DAILY 30 Days Qty: 30 levothyroxine 112 mcg tablet 1 tab PO DAILY 30 Days Qty: 30 fluticasone propion-salmeterol [Advair Diskus] 250-50 mcg/dose blister with device 1 inh INHALATION BID PRN (Reason: Shortness Of Breath) metformin 1,000 mg tablet 1,000 mg PO BID loratadine [Allergy Relief (loratadine)] 10 mg tablet 10 mg PO DAILY multivitamin Tablet 1 tab PO DAILY albuterol sulfate 1 INHALER inhaler 1 puff inhalation Q4H PRN PRN (Reason: Sob &/Or Wheezing) insulin glargine [Lantus Solostar U-100 Insulin] 100 unit/mL (3 mL) insulin pen 36 unit SUBCUT QHS Referrals / Follow Up: Braeden Ramon MD [Med Staff - Active Staff] - Within 2 Weeks (Please call the javascript web developer office upon discharge to schedule hospital follow-up appointment and according to your outpatient stress test) Zoë Payton MD [Primary Care Provider] - Within 1 Week Disposition Disposition (needs filled in before D/C Order can be placed): Home, Self Care Charges/Coding Visit Charges Inpatient E&M: 37567 Subs Hosp L1
--- NOTE | 2022-02-23 13:48 | PCM.PN.CARD ---
Subjective Subjective Seen and evaluated today at bedside Family were at bedside at time of evaluation She is comfortable resting she does not have any active chest pain. Objective Data Vital Signs: Vital Signs Temp Pulse Resp BP Pulse Ox O2 Del Method 98.2 F 65 18 133/66 H 94 Room Air 02/23/22 13:30 02/23/22 13:30 02/23/22 13:30 02/23/22 13:30 02/23/22 13:30 02/23/22 13:30 Oxygen Delivery Method Room Air Weight: 239 lb 4.8 oz Body Mass Index (BMI) 38.6 Intake & Output: Intake and Output for Last 24 Hours 02/21/22 02/22/22 02/23/22 23:59 23:59 23:59 Intake Total 360 / 360 Balance 360 / 360 Lab / Micro Data Result Diagrams: 02/23/22 05:10 02/23/22 05:10 Labs: Laboratory Results - last 24 hr 02/22/22 16:10: Troponin I High Sens 5 02/22/22 17:18: POC Glucose 78 02/22/22 18:28: Troponin I High Sens 5 02/22/22 22:30: POC Glucose 94 02/23/22 05:10: WBC 11.7 H, RBC 4.52, Hgb 13.0, Hct 40.8, MCV 90.3, MCH 28.8, MCHC 31.9 L, RDW Std Deviation 44.2 H, RDW Coeff of [place] 13.4, Plt Count 280, MPV 9.8, Immature Gran % (Auto) 0.300, Neut % (Auto) 60.1, Lymph % (Auto) 29.2, [place] % (Auto) 6.0, Eos % (Auto) 3.9, Baso % (Auto) 0.5, Absolute Neuts (auto) 7.1, Absolute Lymphs (auto) 3.43, Nucleated RBC % 0 02/23/22 05:10: Sodium 139, Potassium 4.1, Chloride 105, Carbon Dioxide 30.0, Anion Gap 4 L, BUN 10, Creatinine 0.64, Estim Creat Clear Calc 87.51, Est GFR (MDRD) Af Amer 123, Est GFR (MDRD) Non-Af 101, BUN/Creatinine Ratio 15.7, Glucose 94, Calcium 8.8, Triglycerides 250 H, Cholesterol 123, LDL Cholesterol 40, VLDL Cholesterol 50 H, HDL Cholesterol 33 L 02/23/22 05:10: Hemoglobin A1c 7.0 H 02/23/22 06:19: POC Glucose 106 02/23/22 11:10: POC Glucose 229 H Cardiology Labs/Tests 02/23/22 05:10: WBC 11.7 H, RBC 4.52, Hgb 13.0, Hct 40.8, MCV 90.3, MCH 28.8, MCHC 31.9 L, Plt Count 280, MPV 9.8, Immature Gran % (Auto) 0.300, Neut % (Auto) 60.1, Lymph % (Auto) 29.2, [place] % (Auto) 6.0, Eos % (Auto) 3.9, Baso % (Auto) 0.5, Absolute Neuts (auto) 7.1, Nucleated RBC % 0 02/23/22 05:10: Sodium 139, Potassium 4.1, Chloride 105, Carbon Dioxide 30.0, Anion Gap 4 L, BUN 10, Creatinine 0.64, Est GFR (MDRD) Af Amer 123, Est GFR (MDRD) Non-Af 101, BUN/Creatinine Ratio 15.7, Glucose 94, Calcium 8.8, Triglycerides 250 H, Cholesterol 123, LDL Cholesterol 40, VLDL Cholesterol 50 H, HDL Cholesterol 33 L 02/23/22 05:10: Hemoglobin A1c 7.0 H Rhythm: Normal sinus rhythm EKG: Sinus rhythm with no significant ST to ST abnormalities ECHO: Normal LV systolic function Ejection fraction 55 to 60% Radiography Diagnostic Testing: Radiology Impression Echocardiogram 02/22/22 15:01 Interpretation Summary The estimated ejection fraction is 55-60 %. Ordering Physician: Hector Cornejo Referring Physician: Zoë Payton Performed By: Josephine Ro, HERMILA, RVT Chest CTA 02/22/22 15:54 IMPRESSION: Normal CTA chest examination, without a demonstrated pulmonary embolism or arterial dissection. Electronically Signed: Ravi Villela MD at 16:57 EST , Physical Exam Cardio Cardio Narrative: environmental monitoring technician showed normal sinus rhythm Cardiovascular Loi S1-S2 regular Chest exam clear to auscultation bilateral. Assessment & Plan Assessment/Plan (1) Hypothyroidism: (2) HLD (hyperlipidemia): (3) DM2 (diabetes mellitus, type 2): (4) HTN (hypertension), benign: (5) Stable angina: PLAN: Plan Patient presented to the hospital with symptoms of chest pain described as retrosternal with some radiation to the shoulder blade She has a cardiac evaluation by EKG, series of cardiac biomarker, CTA and echocardiogram Cardiac work-up has been negative And she remained stable she does not have any further episode of chest pain Cardiac care plan recommendations; 1. Patient with significant family history of CAD and 2. Her presentation was atypical angina which she noted mainly on exertion Would recommend to evaluate with myocardial perfusion study to assess for CAD This can be set up as an outpatient At the cardiology group at the [facility] cardiology group.
== END 2022-02-23 14:37 | disposition home or self-care (01) ==
LOC: ED 12:40 → PCU 02-23 07:09
PROVIDERS: Emergency Provider Emergency Medicine; PCP Family Medicine; Visit Provider Internal Medicine
DX: I20.9 Angina pectoris, unspecified (principal); E11.9 Type 2 diabetes mellitus without complications; Z79.84 Long term (current) use of oral hypoglycemic drugs; E78.00 Pure hypercholesterolemia, unspecified; E89.0 Postprocedural hypothyroidism; I10 Essential (primary) hypertension; J45.909 Unspecified asthma, uncomplicated; Z79.899 Other long term (current) drug therapy; Z79.890 Hormone replacement therapy; E55.9 Vitamin D deficiency, unspecified
CPT/HCPCS: 36415; 71045; 71275; 80048; 80061; 82306; 82962; 83036; 84484; 85025; 85610; 85730; 93005; 93306; 96372; 99221; 99285; Q9957; Q9967; A4216; C8929; G0378

== ENCOUNTER → 2022-03-12 | Outpatient (CLI) | payer BC, SELFPAY | END | disposition home or self-care (01) | PROVIDERS: PCP Family Medicine; Visit Provider Nurse Practitioner Gerontology | DX: R00.2 Palpitations (principal) | CPT/HCPCS: 93225; 93226 ==

== ENCOUNTER → 2022-03-21 | Outpatient (CLI) | payer BC, SELFPAY ==
--- NOTE | 2022-03-22 09:43 | STRESSREP_ITS ---
Stress Test Report Date: 03/21/2022 Procedure: Pharmacologic stress nuclear imaging study Indications: Chest pain Consent: Per the patient Procedure: The patient underwent pharmacologic (Regadenoson 0.4mg ) evaluation with a peak heart rate of 83 beats per minute (51%predicted maximal heart rate) and a peak blood pressure of 128/78 mmHg. The baseline ECG demonstrated normal sinus rhythm. The peak pharmacologic ECG demonstrated no ischemic changes. There were no cardiac dysrhythmias pretest, during pharmacologic infusion, or recovery. There was no complaint of chest discomfort during pharmacologic infusion or recovery. The patient was injected with 14.7 millicuries of technetium 99m Cardiolite and subsequently rest SPECT Cardiolite nuclear imaging was obtained in the horizontal long, vertical long, and short axis views. The patient underwent pharmacologic (Regadenoson) evaluation. The patient was injected with 44.9 millicuries of technetium 99m Cardiolite and subsequently stress SPECT Cardiolite nuclear imaging was obtained in the horizontal long, vertical long, and short axis views. A gated Cardiolite study at peak stress was obtained. The examination was stopped secondary to completion of protocol. Rest and stress SPECT Cardiolite nuclear imaging status post realignment, normalization, and attenuation correction demonstrate moderate to large area of reversible perfusion defect in the inferior lateral and apical segments. The reported LVEF is 45%. Impression: 1. Pharmacologic (Regadenoson) evaluation 2. Peak pharmacologic ECG with no ischemic change. 3. There were no cardiac dysrhythmias pretest, during pharmacologic infusion, or recovery. 5. Moderate to large reversible perfusion defect in the inferior and inferior lateral and apical segments. Denoting ischemia. 6. The gated Cardiolite study reports an LVEF of 45%. This note was generated with [employer] software. It may contain incorrect words, spelling, and punctuation that were not noted in checking the note before signing.
== END | disposition home or self-care (01) ==
LOC: CVS 06:39
PROVIDERS: PCP Family Medicine; Visit Provider Nurse Practitioner Gerontology
DX: R07.9 Chest pain, unspecified (principal)
CPT/HCPCS: 78452; 93017; A9500; A4216; J2785

== ENCOUNTER → 2022-04-09 | Outpatient (CLI) | payer BC, SELFPAY ==
[2022-04-09 16:20] LABS: Absolute Lymphocyte Count 3.75 X10^3/uL (0.83-4.51); Absolute Neutrophil Count 9.1 X10^3/uL (2.0-7.7); Basophil# 0.07 X10^3/uL; Basophil% 0.5 % (0-1); Eosinophil# 0.82 X10^3/uL; Eosinophils% 5.6 % (0-5); Hematocrit 42.7 % (37-47); Hemoglobin 14.1 g/dL (12.0-15.0); Lymphocyte # 3.75 X10^3/ul (0.83-4.51); Lymphocyte % 25.7 % (19-41); Mean Corpuscular Hgb 29.5 pg (27.0-32.0); Mean Corpuscular Volume 89.3 fL (81-99); Mean Platelet Vol. 9.2 fl (6.2-12.0); Monocyte# 0.78 X10^3/uL; Monocyte% 5.3 % (0-10); NRBC Flagged by Analyzer 0 % (0-5); Neutrophil # 9.12 X10^3/uL (2.7-7.7); Neutrophil % 62.6 % (47-70); Platelet Count 334 K/mm3 (150-450); RBC Distribution Width CV 13.5 % (11.6-14.6); RBC Distribution Width SD 44.3 fl (35.1-43.9); Red Blood Count 4.78 M/mm3 (4.2-5.4); White Blood Count 14.6 K/mm3 (4.4-11.0)
[2022-04-09 16:28] LABS: Internal QC Validated? YES +Cl - CLEAR BKGD; Pregnancy, Serum, hCG Quali. NEGATIVE Negative
[2022-04-09 16:32] LABS: Anion Gap 6 (5-15); BUN 13 mg/dL (7-18); BUN/Creat Ratio 18.4 RATIO (10-20); Calcium,Total 9.5 mg/dL (8.5-10.1); Chloride 105 mmol/L (98-107); EST Glomerular Filtration Rate 90 mL/min (>60); Est Glom Filt Rate - Afr Amer 109 mL/min (>60); Glucose 81 mg/dL (74-106); Potassium 4.3 mmol/L (3.5-5.1); Sodium Level 141 mmol/L (136-145)
== END | disposition home or self-care (01) ==
LOC: LAB 15:44
PROVIDERS: PCP Family Medicine; Visit Provider Nurse Practitioner Gerontology
DX: R94.39 Abnormal result of other cardiovascular function study (principal)
CPT/HCPCS: 36415; 80048; 84703; 85025

== ENCOUNTER 2022-04-17 10:20 | Observation (INO) | payer BC, SELFPAY ==
[2022-04-16 08:36] VITALS: BMI 38.5
[2022-04-16 14:33] LABS: Absolute Lymphocyte Count 3.87 X10^3/uL (0.83-4.51); Absolute Neutrophil Count 8.2 X10^3/uL (2.0-7.7); Basophil# 0.09 X10^3/uL; Basophil% 0.7 % (0-1); Eosinophil# 0.66 X10^3/uL; Eosinophils% 4.8 % (0-5); Hematocrit 43.3 % (37-47); Hemoglobin 13.8 g/dL (12.0-15.0); Lymphocyte # 3.87 X10^3/ul (0.83-4.51); Lymphocyte % 28.2 % (19-41); Mean Corp Hgb Conc 31.9 g/dL (32-36); Mean Corpuscular Hgb 28.6 pg (27.0-32.0); Mean Corpuscular Volume 89.6 fL (81-99); Mean Platelet Vol. 9.4 fl (6.2-12.0); Monocyte# 0.84 X10^3/uL; Monocyte% 6.1 % (0-10); NRBC Flagged by Analyzer 0 % (0-5); Neutrophil % 59.8 % (47-70); Platelet Count 341 K/mm3 (150-450); RBC Distribution Width CV 13.5 % (11.6-14.6); RBC Distribution Width SD 44.1 fl (35.1-43.9); Red Blood Count 4.83 M/mm3 (4.2-5.4); White Blood Count 13.7 K/mm3 (4.4-11.0)
[2022-04-17] VITALS (18 sets, daily range): BP systolic 106–153; BP diastolic 64–95; PULSE 60–79; RESP 12–20; TEMP 36.6–36.8; O2SAT 95–99
--- NOTE | 2022-04-17 10:37 | CL.I_ITS ---
Patient Name: TASIA CANDELARIA Study Date: 04/17/2022 Performing: Richard Wilson MD Ht: 66 inches 167.64 cm : 1960 Wt: 239 lbs 108.41 kg Age: 61 Gender: female BSA: 2.16 PROCEDURE(S) PERFORMED DC02-(87362)LHC/COR IC12-(66792/C9600)MEKA W/WO PTCA, SINGLE CORONARY ARTERY CLINICAL PROFILE AND CO-MORBIDITIES Indications: New Onset Angina <= 2 months Heart Failure: None Stress/Imaging Stress Test w/SPECT MPI: Yes Result: Positive High Risk Stress Test with SPECT MPI: Positive High Risk Angina Classification Anginal Classification w/in 2 Weeks: CCS III CAD Presentations: Stable angina. CONCLUSIONS 99% distal RCA; Colleral flow from LCX to RPLV Mild LAD/D1 Successful PTCA/MEKA using Resolute Don 4.5x30 mm RECOMMENDATIONS ASA Indefinitley Plavix for at least 12 months DESCRIPTION OF PROCEDURE The patient arrived to the procedure lab. The risks and benefits of the procedure as well as a full description of our services here and lack of surgical backup were fully explained to the patient and/or their significant other prior to the catheterization. The Timeout was completed, verifying the correct patient and procedure. The patient's procedural site was prepped and draped in the usual fashion. Local anesthetic was given subcutaneously to right radial region with Lidocaine 2%. Using a modified Seldinger technique, arterial access was obtained via the right radial artery, a 6Fr sheath was inserted.. Left Coronary Artery selective angiography was performed in multiple views using a 5 Fr. 4.0 [place] catheter. Right Coronary Artery selective angiography was then performed in multiple views using a 5 Fr. 4.0 [place] catheterThe images were reviewed and options discussed. A decision was then made to proceed with an Intervention, IVUS or other adjunct procedure. Angiogram performed pre balloon dilatation. JR4 Guide catheter was inserted and engaged into the RCA. runthrough Guide wire was advanced to the RCA. 3.0 x 15 Euphora Balloon catheter was advanced across lesion in the right coronary, mid. PTCA balloon inflated at 8 atms for 9 secs. Angiogram performed post balloon dilatation. 4.5 x 30 resolute don Drug Eluting stent was advanced across the lesion in the right coronary, mid. 4.5 x 15 NC Euphora Balloon catheter was inserted post stent. Angiogram performed post stent deployment. Angiogram performed post stent deployment. The arterial sheath was pulled and a TR Band was applied for hemostasis CORONARY ANGIOGRAPHY DOMINANCE: Right Dominant LEFT HEART ASSESSMENT Left Ventricular Ejection Fraction: Not assessed LEFT ANTERIOR DESCENDING ARTERY: LAD: Tubular 30% Proximal lesion in LAD Luminal Irregularities 30% Mid lesion in LAD DIAGONAL 1: Tubular 40% Ostial lesion in 1st Diagonal RIGHT CORONARY ARTERY: RCA: Tubular 99% Distal lesion in RCA COLLATERAL FLOW: Collateral flow from Circumflex to RPL1 INTERVENTION INFORMATION LESION SITE: RCA (Mid) Lesion Complexity: High/C, lesion length: 29 mm, culprit lesion: Yes Pre Stenosis: 99 % Pre intervention MALLORY flow: 2 PROCEDURE: Drug Eluting Stent with pre and post dilatation Post Stenosis: 0 % Post intervention MALLORY flow: 3 Lesion Devices: Cordis 6 Fr JR4 100cm Guide Catheter Terumo .014 180cm Runthrough Extra Floppy straight Medtronic SC EUPHORA RX 3.0x15 BALLOON Medtronic Resolute Don RX MEKA 4.50x30 Medtronic NC EUPHORA RX 4.5x15 BALLOON COMPLICATIONS No Complications PROCEDURE MEDICATIONS Fentanyl 50 mcg IV Versed 2 mg IV Oxygen: 2 L/min via nasal cannula Brilinta 180 mg PO @ 04/17/2022 09:45:17 Heparin given IA 04/17/2022 09:38:59 Heparin 8000 unit(s) IV 04/17/2022 09:46:43 Heparin 3000 unit(s) IV 04/17/2022 10:18:32 Nitro 200 mcg IC 04/17/2022 09:53:47 Verapamil 2.5mg, Ntg 200mcgs, 2000 units of Heparin given IA 04/17/2022 09:38:59 IV Bolus: .9 NaCl 250 ml total 04/17/2022 10:18:53 SUMMARY OF HEMODYNAMIC DATA Time AIR REST ECG 09:19:30 AO 109/74 (91) SA 09:39:31 AO 121/75 (95) 09:53:21 ECG 10:21:28 10:21:28 Signed By Richard Wilson MD On 04/17/2022 10:36:49 Richard Wilson MD
[2022-04-17] MEDS: 0.9% Normal Saline 1,000 ML 150 ML IV (11:27)
--- NOTE | 2022-04-17 14:51 | CRPHASE1_ITS ---
Patient Communication Former Patient:: Phase I Guide to Cardiac Rehab Given to Patient:: Yes Cardiac Rehab Facility Choice List Given to Patient:: Yes Textile Colorist [place]:: Richard Wilson Cardiac Rehabilitation Info Cardiac Rehabilitation Program Information: Cardiac Rehab The cardiac rehab team at [facility] consists of highly skilled exercise physiologists, nurses, respiratory therapists and physicians working together with you. Our purpose is to help you have a full recovery and achieve the goals you set for yourself. Over the years many of our patients have returned to activities they assumed they would never do again! We can help restore your confidence and motivation to make lifestyle changes that can have a significant impact on your health and quality of life! We can help answer questions and concerns you may have about exercise, lifestyle, medications, diet, stress and anxiety which are common following a hospitalization. WE monitor ECG and vital signs during exercise and discuss your progress with you and report to your physician(s). Cardiac Rehab is proven to help reduce readmissions, improve functional capacity and lower recurrence of problems with your heart. Our Cardiac Rehab program is Certified by the [place] [employer]-Vascular and Pulmonary [employer] (AACVPR) and Accredited by the [place] [employer] through our [facility]. You can contact us at . We invite you to call us with your questions or to get started in our program. If you have other questions or concerns be sure to ask y our physician/provider during your follow-up visit. WE look forward to seeing you!
--- NOTE | 2022-04-17 14:51 | CRPH1.INSTRU ---
General Education CAD and cardiac anatomy and function:: Patient communicates acknowledgment Explanation of diagnoses and procedures:: Patient communicates acknowledgment Sign/Symptoms of CT:: Patient communicates acknowledgment Antiplatelet therapy: Patient communicates acknowledgment Proper use of NTG-SL: Patient communicates acknowledgment Emergency procedures and activation of EMS: Patient communicates acknowledgment Compliance of all prescribed medications: Patient communicates acknowledgment Smoking Patient Nicotine/Smoking Risk Factors Are:: Never smoked Recommendations Include:: Second-hand smoke recommendation Nicotine/Smoking Response Code:: Patient communicates acknowledgment Dyslipidemia Recommendations Include:: Lipid profile provided Dyslipidemia Response Code:: Patient communicates acknowledgment Overweight/Obesity Patient Overweight/Obesity Risk Factors Are:: Obesity - > or = 30 Recommendations Include:: Weight loss of 5-10%, Reduced calorie diet, Exercise 5-7 times/week Overweight/Obesity:: Patient communicates acknowledgment Hypertension Recommendations Include:: Maintain BP <130/85, BP <130/80 if diabetic Hypertension:: Patient communicates acknowledgment Heart Disease Patient Heart Disease Risk Factors Are:: Family history of heart disease < 65 years old Recommendations Include:: Educated family members of their risk Heart Disease Response Code:: Patient communicates acknowledgment Diabetes Patient Diabetes Risk Factors Are:: Elevated blood sugars Recommendations Include:: Maintain fasting blood sugars 70-110 md/dL, Maintain HgbA1c of 6% or less, Monitor blood sugar as prescribed, Diabetic dietary guidelines, Decrease/maintain body weight Diabetes:: Patient communicates acknowledgment Metabolic Syndrome Patient Metabolic Syndrome Risk Factors Are [3 of 5]:: Fasting blood sugar > 100 mg/dL, Waist circumference > 35 [female] or 40 [male], High triglyceride >150, Hypertension, Low HDL <40 [male] or < 50 [female] Recommendations Include:: Reinforce compliance to risk factor modifications, Patient is diabetic, Encouraged follow-up with Primary Care Physician Metabolic Syndrome Response Code:: Patient communicates acknowledgment Sedentary Patient Sedentary Risk Factors Are:: Lack of regular exercise Recommendations Include:: Aerobic exercise 5-7 times/week for 20-30 minutes continuously, Benefits of regular exercise, Discussed home walking program, Monitored Outpatient Cardiac Rehab Sedentary Response Code:: Patient communicates acknowledgment Stress Recommendations Include:: Identification of stressors, and assessment of coping skills, Stress management techniques Stress Response Code:: Patient communicates acknowledgment
[2022-04-17] MEDS: Clopidogrel Bisulfate 300 MG Tablet PO (16:05)
[2022-04-17] MEDS: Glimepiride 4 MG Tablet PO (16:05)
[2022-04-17 17:10] LABS: ACT Activated Clotting Time 221 sec (74-137)
[2022-04-17 17:10] LABS: ACT Activated Clotting Time 263 sec (74-137)
[2022-04-17] MEDS: cloNIDine HCl 0.1 MG Tablet PO (20:17)
[2022-04-17] MEDS: Atorvastatin Calcium 40 MG Tablet PO (20:17)
[2022-04-17] MEDS: Insulin Glargine-YFGN 100 UNIT/ML Pen 33 UNIT SC (20:20)
[2022-04-18 01:51] LABS: Bedside Glucose 149 mg/dL (74-106)
[2022-04-18 03:15] VITALS: BP 131/72; PULSE 63; RESP 18; TEMP 36.5; O2SAT 95
[2022-04-18] MEDS: Levothyroxine 112 MCG Tablet PO (05:51)
[2022-04-18 06:29] LABS: Hematocrit 40.7 % (37-47); Hemoglobin 12.7 g/dL (12.0-15.0); Mean Corp Hgb Conc 31.2 g/dL (32-36); Mean Corpuscular Hgb 28.6 pg (27.0-32.0); Mean Corpuscular Volume 91.7 fL (81-99); Mean Platelet Vol. 9.4 fl (6.2-12.0); Platelet Count 276 K/mm3 (150-450); RBC Distribution Width CV 13.4 % (11.6-14.6); RBC Distribution Width SD 45.7 fl (35.1-43.9); Red Blood Count 4.44 M/mm3 (4.2-5.4)
[2022-04-18 07:00] LABS: AST(SGOT) 10 U/L (15-37); Alanine Aminotransfer ALT/SGPT 18 U/L (13-56); Albumin, Serum 3.3 g/dL (3.2-5.0); Alkaline Phosphatase 71 U/L (45-117); Anion Gap 5 (5-15); BUN 10 mg/dL (7-18); BUN/Creat Ratio 16.4 RATIO (10-20); Calcium,Total 8.6 mg/dL (8.5-10.1); Chloride 111 mmol/L (98-107); Cholesterol 115 mg/dL (200); Creatinine, Serum 0.61 mg/dL (0.55-1.02); EST Glomerular Filtration Rate 106 mL/min (>60); Est Glom Filt Rate - Afr Amer 129 mL/min (>60); Estimated Creatinine Clearance 91.81 ml/min; Globulin 3.2 g/dL (2.2-4.2); Glucose 115 mg/dL (74-106); High Density Lipoprotein 35 mg/dL; Protein, Total 6.5 g/dL (6.4-8.2); Sodium Level 143 mmol/L (136-145); Triglycerides 166 mg/dL; Very Low Density Lipoprotein 33 mg/dL (5-40)
[2022-04-18 07:34] VITALS: O2SAT 98
[2022-04-18 09:32] VITALS: BP 142/78; PULSE 77; RESP 15; TEMP 37.1; O2SAT 95
[2022-04-18 09:35] VITALS: BP 142/78; PULSE 77
[2022-04-18] MEDS: Venlafaxine XR 150 MG Capsule PO (09:35)
[2022-04-18] MEDS: Multivitamins,Therapeutic Tablet 1 TABLET PO (09:35)
[2022-04-18] MEDS: Metoprolol(XL)Succ 200 MG Tablet PO (09:35)
[2022-04-18] MEDS: Clopidogrel Bisulfate 75 MG Tablet PO (09:35)
[2022-04-18] MEDS: cloNIDine HCl 0.1 MG Tablet PO (09:35)
[2022-04-18] MEDS: Loratadine 10 MG Tablet PO (09:35)
[2022-04-18] MEDS: Aspirin E.C. 81 MG Tablet PO (09:35)
[2022-04-18] MEDS: Lisinopril 10 MG Tablet PO (09:36)
[2022-04-18] MEDS: Glimepiride 4 MG Tablet PO (09:36)
[2022-04-18] MEDS: Furosemide 20 MG Tablet PO (09:37)
--- NOTE | 2022-04-18 10:40 | PCM.PN.BLA ---
Progress Note Denies any plaints. No angina. Ambulating. Physical Exam Narrative Comfortable. Heart sounds 1 and 2 normal. Respirations unlabored. Right radial pulse 2+. No hematoma or bruit. Assessment & Plan Assessment/Plan (1) History of coronary artery stent placement: PLAN: Plan Coronary artery disease status post drug-eluting stent placement to the distal right coronary artery. Stable. Angina resolved. Continue aspirin lifelong. Clopidogrel for at least 1 year. Discussed with patient. Stable. Discharge home.
--- NOTE | 2022-04-18 11:03 | PHA.DC.MR ---
Pharmacy Service has performed discharge medication reconciliation for this patient. The patient's discharge medication list was reviewed for discrepancies and discrepancies were resolved. Home Medications clonidine HCl 0.1 mg tablet 1 tab PO BID htn 30 days #60 tabs 08/13/18 fluticasone 250 mcg-salmeterol 50 mcg/dose blistr powdr for inhalation (Advair Diskus) 1 inh inhalation BID PRN Shortness Of Breath 08/13/18 furosemide 20 mg tablet 1 tab PO DAILY diuretic 30 days #30 tabs 08/13/18 levothyroxine 112 mcg tablet 1 tab PO DAILY thyroid 30 days #30 tabs 08/13/18 simvastatin 80 mg tablet 1 tab PO QHS cholesterol 30 days #30 tabs 08/13/18 venlafaxine 150 mg capsule,extended release 24 hr (Effexor XR) 150 mg PO DAILY mental health 30 days #30 caps 08/13/18 loratadine 10 mg tablet (Allergy Relief (loratadine)) 10 mg PO DAILY allergies 04/19/20 metformin 1,000 mg tablet 1,000 mg PO BID diabetes 04/19/20 multivitamin 1 tab PO DAILY vitamin 04/19/20 albuterol sulfate 90 mcg/actuation aerosol inhaler 2 puff inhalation Q4H PRN PRN Sob &/Or Wheezing 03/08/22 glimepiride 2 mg tablet 4 mg PO BID diabetic 03/08/22 insulin glargine 100 unit/mL (3 mL) subcutaneous pen (Lantus Solostar U-100 Insulin) 33 unit subcut QHS diabetes 03/08/22 nitroglycerin 0.4 mg sublingual tablet 0.4 mg sublingual Q5M PRN chest pain #25 tabs 03/08/22 aspirin 81 mg tablet,delayed release 81 mg PO DAILY #30 tabs 03/22/22 lisinopril 10 mg tablet 10 mg PO DAILY blood pressure 30 days #30 tabs 04/09/22 clopidogrel 75 mg tablet 75 mg PO DAILY #60 tabs 04/18/22 metoprolol succinate 200 mg tablet,extended release 24 hr 200 mg PO DAILY 60 days #60 tabs 04/18/22
--- NOTE | 2022-04-18 11:40 | NUR.TO.PHY ---
Called Dr. Wilson about discharge instructions for patient. Dr. Wilson stated there are no discharge instructions nor restrictions.
--- NOTE | 2022-04-18 11:50 | NURSING ---
Cardiac cath home instructions provided and discussed with patient and her . Stent card also provided for patient.
[2022-04-18 12:00] VITALS: BP 142/78; PULSE 77; RESP 15; TEMP 37.1; O2SAT 95
== END 2022-04-18 10:37 | disposition home or self-care (01) ==
LOC: PCU 10:43
PROVIDERS: Nurse Practitioner Gerontology; Admitting Provider Internal Medicine Cardiovascular Disease; PCP Family Medicine; Referring Provider Internal Medicine Cardiovascular Disease; Visit Provider Internal Medicine Cardiovascular Disease
DX: I25.118 Atherosclerotic heart disease of native coronary artery with other forms of angina pectoris (principal); E11.9 Type 2 diabetes mellitus without complications; Z79.4 Long term (current) use of insulin; R94.39 Abnormal result of other cardiovascular function study; I10 Essential (primary) hypertension; E78.00 Pure hypercholesterolemia, unspecified; Z82.49 Family history of ischemic heart disease and other diseases of the circulatory system; R06.02 Shortness of breath; Z79.899 Other long term (current) drug therapy; Z79.84 Long term (current) use of oral hypoglycemic drugs; Z79.82 Long term (current) use of aspirin; J45.909 Unspecified asthma, uncomplicated; K21.9 Gastro-esophageal reflux disease without esophagitis; E07.9 Disorder of thyroid, unspecified; Z79.890 Hormone replacement therapy; R00.2 Palpitations
CPT/HCPCS: 36415; 80053; 80061; 82962; 85025; 85027; 85347; 92928; 93005; 93454; 96360; 96361; 99152; 99153; 99221; C1874; J7030; J7040; Q9967; C1725; C1769; C1887; C1894; C9600; G0378

== ENCOUNTER → 2022-09-05 | Outpatient (CLI) | payer BC, SELFPAY ==
[2022-09-05 11:00] LABS: Hemoglobin 13.2 g/dL (12.0-15.0); Mean Corp Hgb Conc 31.4 g/dL (32-36); Mean Corpuscular Hgb 28.7 pg (27.0-32.0); Mean Corpuscular Volume 91.3 fL (81-99); Mean Platelet Vol. 9.8 fl (6.2-12.0); Platelet Count 291 K/mm3 (150-450); RBC Distribution Width CV 13.4 % (11.6-14.6); RBC Distribution Width SD 45.5 fl (35.1-43.9); White Blood Count 8.5 K/mm3 (4.4-11.0)
== END | disposition home or self-care (01) ==
LOC: LAB 09:53
PROVIDERS: PCP Family Medicine; Referring Provider Physician Assistant Medical; Visit Provider Physician Assistant Medical
DX: R23.3 Spontaneous ecchymoses (principal)
CPT/HCPCS: 36415; 85027

== ENCOUNTER → 2023-01-09 | Outpatient (CLI) | payer BC, SELFPAY ==
--- NOTE | 2023-01-09 16:00 | BI_ITS ---
MAMMOGRAPHY - BILATERAL SCREENING REASON FOR EXAM: Female, 62 years old. Routine annual screening examination. PERTINENT HISTORY: Non-contributory. History of prior left excisional breast biopsy TECHNIQUE: Digital bilateral breast radha (3D mammographic acquisition) in the CC and MLO projections. 2-D mediolateral oblique (MLO) and craniocaudad (CC) views of both breasts were obtained. CAD: Full Field Digital Mammography with Computer Added Detection was performed. COMPARISON: Comparison is made with prior study December 07, 2021 and August 29, 2020. FINDINGS: Breast Composition: There are scattered areas of fibroglandular density. There are no dominant masses or suspicious calcifications. There is a 4.5 mm x 4.7 mm well-defined nodule in the central lateral aspect of the right breast. Correlation with ultrasound is recommended. Stable fat-containing bilateral axillary lymph nodes. No other significant abnormalities are identified. BI/SCRN MAMM (CAD)W/RADHA BILAT IMPRESSION: 4.5 mm x 4.7 mm well-defined nodule in the central lateral aspect of the right breast as described. Correlation with ultrasound is recommended. ASSESSMENT CATEGORY: BIRADS Category 0: Incomplete. Need additional imaging evaluation. A letter regarding these results will be sent to the patient by the facility within 30 days. Approximately 10% of breast cancers are not detected by mammography. A normal mammogram should not delay biopsy of a clinically suspicious abnormality. [id number] Electronically Signed: Antonio Barbosa MD at 8:51 EST ,
== END | disposition home or self-care (01) ==
LOC: OPBI 15:58
PROVIDERS: PCP Family Medicine; Referring Provider Family Medicine; Visit Provider Family Medicine
DX: Z12.31 Encounter for screening mammogram for malignant neoplasm of breast (principal)
CPT/HCPCS: 77063; 77067

== ENCOUNTER → 2023-01-14 | Outpatient (CLI) | payer BC, SELFPAY ==
--- NOTE | 2023-01-14 13:51 | US_ITS ---
STUDY: ULTRASOUND BREAST - RIGHT REASON FOR EXAM: Female, 62 years old. Abnormal screening mammogram. TECHNIQUE: Axial and longitudinal images of the RIGHT breast were performed with a high resolution ultrasound transducer. # OF IMAGES: 20 COMPARISON: Comparison is made with prior mammogram dated January 09, 2023. FINDINGS: RIGHT Breast: The mammographic abnormality corresponds to a 6 mm x 6 mm x 2 mm hypoechoic nodule just deep to the skin surface at the 9:00 position of the breast at 15 cm from the nipple. Biopsy recommended. US/Breast Limited Unilateral IMPRESSION: The mammographic abnormality corresponds to a 6 mm x 6 mm x 2 mm hypoechoic nodule just deep to the skin surface at the 9:00 position of the breast at 15 cm on the nipple. Biopsy recommended. ASSESSMENT CATEGORY: BIRADS Category 4: Suspicious - Biopsy Should Be Considered. A letter regarding these results will be sent to the patient by the facility within 30 days. Electronically Signed: Antonio Barbosa MD at 14:38 EST ,
== END | disposition home or self-care (01) ==
LOC: OPUS 13:49
PROVIDERS: PCP Family Medicine; Referring Provider Family Medicine; Visit Provider Family Medicine
DX: R92.8 Other abnormal and inconclusive findings on diagnostic imaging of breast (principal); N63.15 Unspecified lump in the right breast, overlapping quadrants
CPT/HCPCS: 76642

== ENCOUNTER → 2023-04-08 | Outpatient (CLI) | payer BC, SELFPAY ==
--- OUTSIDE RECORDS SUMMARY | 2023-04-08 06:24 | XMS RPT_ITS | CCD ---
Author Name Unknown Address [address] [place] [address] Organization [facility] Care Team Providers Care Newspaper Carriers Supervisor Name Role Phone [place], Dona S Attending Unavailable [place], Dona S Primary Care Unavailable [place], Dona S Attending Unavailable [place], Dona S Primary Care Unavailable [place], Dona S Admitting Unavailable [place], Dona S Attending Unavailable [place], Dona S Primary Care Unavailable [place], Dona S Admitting Unavailable [place], Dona S Admitting Unavailable [place], Dona S Attending Unavailable [place], Dona S Primary Care Unavailable [place], Dona S Admitting Unavailable [place], Dona S Attending Unavailable [place], Dona S Primary Care Unavailable [place], Dona S Admitting Unavailable [place], Dona S Attending Unavailable [place], Dona S Primary Care Unavailable Allergies Allergy Classification Reported Allergen(s) Allergy Type Date of Onset Reaction(s) Facility (1 source) Meperidine; Translations: [Demerol HCl] Drug Allergy [facility] Repository Encounters Encounter Date Encounter Type Care Provider Facility Start: 05-14-2018 End: 05-15-2018 Patient encounter procedure Dona Castellanos [place] Facility:[facility] Start: 12-26-2017 End: 12-27-2017 Patient encounter procedure Dona Castellanos [place] Facility:[facility] Start: 12-15-2017 End: 12-16-2017 Patient encounter procedure Dona S [place] Facility:[facility] Start: 09-16-2017 End: 09-17-2017 Patient encounter procedure Dona S [place] Facility:[facility] Start: 09-16-2017 Patient encounter Facil [id number] Start: 08-18-2017 End: 08-19-2017 Patient encounter procedure Dona Castellanos [place] Facility:[facility] Start: 05-19-2017 End: 05-20-2017 Patient encounter procedure Dona Cox Facility:[facility] Payers Date Payer Category Payer Private Health Insurance 1960 Unknown [id number] 1960 Unknown [id number] 1960 Unknown [id number] Private Health Insurance [id number] Summary Purpose Family History No Family History Records FoundNo Family History Records Found Advance Directives No Advanced Directives Records FoundNo Advanced Directives Records Found Additional Source Comments INFORMATION SOURCE (unrecogn ized section and content) DATE CREATED AUTHOR AUTHOR'S DAVONTE ATVALERIA 05/16/2018 [facility] FOR RECORDS PERTAINING TO PATIENTS WHO ARE OR HAVE BEEN ENROLLED IN A CHEMICAL DEPENDENCY/SUBSTANCEABUSE PROGRAM, SOME INFORMATION MAY BE OMITTED. This clinical summary was aggregated from multiple sources. Caution should be exercised in using it in the provision of clinical care. This summary normalizes information from multiple sources, and as a consequence, information in this document may materially change the coding, format and clinical context of patient data. In addition, data may be omitted in some cases. CLINICAL DECISIONS SHOULD BE BASED ON THE PRIMARY CLINICAL RECORDS. [facility]. provides no warranty or guarantee of the accuracy or completeness of information in this document.
--- NOTE | 2023-04-08 12:12 | STRESSREP ---
Stress Test Report Date: 04/08/2023 Procedure: Pharmacologic stress nuclear imaging study Indications: Chest pain Consent: Per the patient Procedure: Initially exercise treadmill was tried. Patient walked on the treadmill according to the Car protocol for 2 minutes and 19 seconds. However he started complaining of chest tightness and developed frequent PVCs. Subsequently the test was changed to Lexiscan stress Myoview. The patient underwent pharmacologic (Regadenoson 0.4mg ) evaluation with a peak heart rate of 94 beats per minute (59%predicted maximal heart rate) and a peak blood pressure of 166/98 mmHg. The baseline ECG demonstrated sinus rhythm. The peak pharmacologic ECG demonstrated no ischemic changes. No PVCs were noted with infusion of Lexiscan. There was no complaint of chest discomfort during pharmacologic infusion or recovery. The patient was injected with 14.9 millicuries of technetium 99m Cardiolite and subsequently rest SPECT Cardiolite nuclear imaging was obtained in the horizontal long, vertical long, and short axis views. The patient underwent pharmacologic (Regadenoson) evaluation. The patient was injected with 44.5 millicuries of technetium 99m Cardiolite and subsequently stress SPECT Cardiolite nuclear imaging was obtained in the horizontal long, vertical long, and short axis views. A gated Cardiolite study at peak stress was obtained. The examination was stopped secondary to completion of protocol. Rest and stress SPECT Cardiolite nuclear imaging status post realignment, normalization, and attenuation correction demonstrate no fixed or reversible perfusion defects. There is end systolic thickening and brightening. The gated Cardiolite study demonstrates myocardial thickening and inward wall motion. The reported LVEF is 67%. Impression: 1. Significant chest tightness with frequent PVCs, walking on the treadmill. Positive treadmill stress for angina. 2. Pharmacologic (Regadenoson) evaluation 3. Peak pharmacologic ECG with no ischemic changes. 4. Rest and stress SPECT Cardiolite nuclear imaging demonstrate relative uniform tracer uptake and myocardial perfusion appearing within normal limits. 5. The gated Cardiolite study reports an LVEF of 67%. 6. Lexiscan stress Myoview negative for ECG or imaging evidence of ischemia. However patient developed significant chest tightness with frequent PVCs when initially she tried walking on the treadmill. Suspect angina. Clinical correlation necessary. This note was generated with [employer] software. It may contain incorrect words, spelling, and punctuation that were not noted in checking the note before signing.
== END | disposition home or self-care (01) ==
LOC: CVS 06:22
PROVIDERS: PCP Family Medicine; Referring Provider Internal Medicine Cardiovascular Disease; Visit Provider Internal Medicine Cardiovascular Disease
DX: R07.9 Chest pain, unspecified (principal)
CPT/HCPCS: 78452; 93017; A9500; A4216; J2785

== ENCOUNTER 2023-04-23 11:55 | Observation (INO) | payer BC, SELFPAY ==
--- NOTE | 2023-04-09 14:08 | PCM.HP.BLA ---
History and Physical Date of Admission: 04/23/23 This is a 62-year-old female, who presents for a cardiac catheterization following an abnormal stress test. According to her, for the last couple of weeks she has been having some anterior chest tightness with exertion such as carrying groceries. Relieved with rest. She is not sure if it is similar to her anginal discomfort. No shortness of breath. No orthopnea or PND. No ankle edema. Intake Vital Signs See EMR Allergies See EMR Medications See EMR Ejection fraction %: 55 to 59 PFSH Medical History Abnormal bruising Abnormal mammogram of right breast Abnormal stress test Aphthous stomatitis Asthma Atherosclerotic heart disease of [place] coronary artery without angina pectoris Breast mass, left Bronchitis CAD (coronary artery disease) Chest pain Diabetes DM2 (diabetes mellitus, type 2) LEES (dyspnea on exertion) Essential hypertension GERD (gastroesophageal reflux disease) Hemorrhoids High cholesterol History of edema History of irregular heartbeat HLD (hyperlipidemia) HTN (hypertension), benign Hypertension Hypothyroidism Leukocytosis Nodule of neck Obesity Palpitations Presence of stent in coronary artery (~04/17/22) Pure hypercholesterolemia Screening for intestinal cancer Thyroid disease Vitamin D deficiency Surgical History BLADDER SLING H/O partial thyroidectomy H/O right heart catheterization History of History of hysterectomy History of tonsillectomy Hx of colonoscopy Presence of coronary angioplasty implant and graft (~04/17/22) Family History Mother Colon cancer CAD (coronary artery disease) Diabetes Hypertension High cholesterolFather Heart disease Diabetes Hypertension High cholesterolBrother Bleeding disorder Cancer melanomaGrandmother CVA (cerebral vascular accident) Heart diseaseUncle CVA (cerebral vascular accident) Heart diseaseAunt Heart disease Social History Smoking Status: Never smoker alcohol intake: never substance use type: does not use caffeine: Yes Type: carbonated beverages Number of servings: 3 ROS Const Const: Negative for fatigue, weakness, headache(s), frequent falls, difficulty sleeping or excessive sweating Eyes Eyes: Negative for loss of peripheral vision, transient loss of vision, blurry vision, double vision or tunnel vision ENT ENT: Negative for headache(s), dizziness, Nosebleed/epistaxis or balance problems Cardio Chest Pain: Yes Frequency: weekly (carrying in groceries in from outside- started about 4 weeks ago) Character: tightness Location: mid sternal Duration: minutes Palpitations: No Edema: None Muscle aches with walking: None Resp Respiratory: Positive for SOB with activity; Negative for SOB at rest, SOB orthopnea\SOB lying down, Cough or paroxysmal nocturnal dyspnea GI GI: Negative nausea, vomiting, heartburn or black,tarry stools : Negative for hematuria Musc Musc: Negative for muscle aches/ myalgia, muscle weakness, joint pain or balance problems Skin Skin: Negative non-healing lesions, rash or unusual bruising Neuro Neuro: Negative for dizziness, lightheadedness, near syncope, syncope, frequent falls, headache(s), weakness, blurry vision, double vision or lack of coordination Isai Hematologic/Lymphatic: Negative for easy bleeding or easy bruising Endo Endo: Negative for fatigue, excessive sweating or increased thirst/drinking Psych Psych: Negative for anxiety or depression Allergy Allergy/Immunology: Negative for hives and Negative for rash Cardiology Exam Const Appearance: comfortable and no acute distress Nutritional Appearance: well nourished and obese Neck Neck: no JVD Carotids: Negative bruit Chest Auscultation: Bilateral: Clear to Auscultation Cardio Rate: regular rate Rhythm: regular rhythm Heart sounds: S1 normal and S2 normal GI GI: obese Neuro General: patient alert, patient awake and patient oriented x3 Extremities Lower Extremity Edema: None: Bilateral Supplemental Info Supplemental Information Stress Test 04/08/2023: Impression: 1. Significant chest tightness with frequent PVCs, walking on the treadmill. Positive treadmill stress for angina. 2. Pharmacologic (Regadenoson) evaluation 3. Peak pharmacologic ECG with no ischemic changes. 4. Rest and stress SPECT Cardiolite nuclear imaging demonstrate relative uniform tracer uptake and myocardial perfusion appearing within normal limits. 5. The gated Cardiolite study reports an LVEF of 67%. 6. Lexiscan stress Myoview negative for ECG or imaging evidence of ischemia. However patient developed significant chest tightness with frequent PVCs when initially she tried walking on the treadmill. Suspect angina. Clinical correlation necessary. Echocardiogram 02/22/2022: Interpretation Summary The estimated ejection fraction is 55-60 %. Stress test 03/22/2022: Rest and stress SPECT Cardiolite nuclear imaging status post realignment, normalization, and attenuation correction demonstrate moderate to large area of reversible perfusion defect in the inferior lateral and apical segments. The reported LVEF is 45%. Impression: 1. Pharmacologic (Regadenoson) evaluation 2. Peak pharmacologic ECG with no ischemic change. 3. There were no cardiac dysrhythmias pretest, during pharmacologic infusion, or recovery. 5. Moderate to large reversible perfusion defect in the inferior and inferior lateral and apical segments. Denoting ischemia. 6. The gated Cardiolite study reports an LVEF of 45%. CARDIAC CATH INTERVENTION 04/17/22 CONCLUSIONS 99% distal RCA; Colleral flow from LCX to RPLV Mild LAD/D1 Successful PTCA/MEKA using Resolute Alverto 4.5x30 mm RECOMMENDATIONS ASA Indefinitley Plavix for at least 12 months CORONARY ANGIOGRAPHY DOMINANCE:? Right Dominant LEFT HEART ASSESSMENT Left Ventricular Ejection Fraction: Not assessed LEFT ANTERIOR DESCENDING ARTERY: LAD: Tubular 30% Proximal lesion in LAD Luminal Irregularities 30% Mid lesion in LAD DIAGONAL 1: Tubular 40% Ostial lesion in 1st Diagonal RIGHT CORONARY ARTERY: RCA: Tubular 99% Distal lesion in RCA COLLATERAL FLOW: Collateral flow from Circumflex to RPL1 48HR HOLTER MONITOR 03/12/22 Average HR 70bpm and normal sinus rhythm with periods of sinus arrhythmia.? The minimum heart rate was 53 bpm and sinus bradycardia recorded at 6:14 AM.? The maximum heart rate was 109 bpm and sinus tachycardia recorded at 9:37 AM.? Ventricular ectopy 0.1%.? Supraventricular ectopy 0.2%.? Atrial fibs 0.0%. Assessment and Plan Assessment and Plan (1) CAD (coronary artery disease): Status: Chronic Plan: Patient has a history of coronary artery disease with stenting to her distal RCA. During patient's stress test on 04/08/2023, she had significant chest tightness with frequent PVCs, positive for angina. Due to this, would like to assess her coronary arteries through a cardiac catheterization. Patient agrees to proceed. Depending on results, further recommendations will be made.
--- NOTE | 2023-04-18 09:30 | RAD_ITS ---
STUDY: X-RAY CHEST REASON FOR EXAM: Female, 62 years old. Cardiac Catheterization TECHNIQUE: PA and lateral COMPARISON: February 22, 2023. FINDINGS: The lungs are clear and expanded. There is no demonstrated pleural abnormality. Normal size heart. Normal mediastinum and casey. Normal visualized pulmonary arteries. Tortuous aortic arch and descending thoracic aorta. Dorsal spine demonstrates degenerative change. Normal visualized ribs, clavicles, and shoulders. There is no demonstrated abnormality of the visualized soft tissue structures of the upper abdomen. RAD/Chest PA and Lateral IMPRESSION: No acute cardiopulmonary pathology. Electronically Signed: Richard Carpenter MD at 16:51 EST ,
[2023-04-18 10:05] LABS: Absolute Lymphocyte Count 3.03 X10^3/uL (0.83-4.51); Absolute Neutrophil Count 8.3 X10^3/uL (2.0-7.7); Basophil% 0.8 % (0-1); Eosinophil# 0.56 X10^3/uL; Eosinophils% 4.4 % (0-5); Hemoglobin 14.4 g/dL (12.0-15.0); Lymphocyte # 3.03 X10^3/ul (0.83-4.51); Lymphocyte % 23.8 % (19-41); Mean Corpuscular Hgb 28.5 pg (27.0-32.0); Mean Corpuscular Volume 88.9 fL (81-99); Mean Platelet Vol. 9.6 fl (6.2-12.0); Monocyte% 5.5 % (0-10); NRBC Flagged by Analyzer 0 % (0-5); Neutrophil % 65.1 % (47-70); Platelet Count 351 K/mm3 (150-450); RBC Distribution Width CV 12.9 % (11.6-14.6); RBC Distribution Width SD 42.1 fl (35.1-43.9); Red Blood Count 5.06 M/mm3 (4.2-5.4); White Blood Count 12.7 K/mm3 (4.4-11.0)
[2023-04-18 10:18] LABS: Anion Gap 5 (5-15); BUN 13 mg/dL (7-18); BUN/Creat Ratio 17.5 RATIO (10-20); Calcium,Total 9.8 mg/dL (8.5-10.1); Chloride 104 mmol/L (98-107); Creatinine, Serum 0.74 mg/dL (0.55-1.02); EST Glomerular Filtration Rate 84 mL/min (>60); Est Glom Filt Rate - Afr Amer 102 mL/min (>60); Glucose 276 mg/dL (74-106); Sodium Level 140 mmol/L (136-145)
[2023-04-18 10:33] LABS: Internal QC Validated? YES +Cl - CLEAR BKGD; Pregnancy, Serum, hCG Quali. NEGATIVE Negative
[2023-04-18 10:34] LABS: Record Kit Lot#, Serum Preg. HCG0000718086
[2023-04-22 07:47] VITALS: BMI 37.5
[2023-04-23] VITALS (11 sets, daily range): BP systolic 131–149; BP diastolic 65–82; PULSE 62–69; RESP 12–18; TEMP 36.3–36.6; O2SAT 94–99; BMI 36.0
--- OUTSIDE RECORDS SUMMARY | 2023-04-23 07:30 | XMS RPT_ITS | CCD ---
Author Name Unknown Address [address] [place] [address] Organization [facility] Care Team Providers Care Internal Audit Manager Name Role Phone Blanchester, Dona S Attending Unavailable Blanchester, Dona S Primary Care Unavailable Blanchester, Dona S Attending Unavailable Bl[place], Dona S Primary Care Unavailable Blanchester, Dona S Admitting Unavailable Bl[place], Dona S Attending Unavailable Blanchester, Dona S Primary Care Unavailable Blanchester, Dona S Admitting Unavailable Blanchester, Dona S Admitting Unavailable Blanchester, Dona S Attending Unavailable Blanchester, Dona S Primary Care Unavailable Blanchester, Dona S Admitting Unavailable Blanchester, Dona S Attending Unavailable Blanchester, Dona S Primary Care Unavailable Blanchester, Dona S Admitting Unavailable Blanchester, Dona S Attending Unavailable Blanchester, Dona S Primary Care Unavailable Allergies Allergy Classification Reported Allergen(s) Allergy Type Date of Onset Reaction(s) Facility (1 source) Meperidine; Translations: [Demerol HCl] Drug Allergy [facility] Repository Encounters Encounter Date Encounter Type Care Provider Facility Start: 05-14-2018 End: 05-15-2018 Patient encounter procedure Dona Castellanos [place] Facility:[facility] Start: 12-26-2017 End: 12-27-2017 Patient encounter procedure Dona Castellanos [place] Facility:[facility] Start: 12-15-2017 End: 12-16-2017 Patient encounter procedure Dona S Blanchester Facility:[facility] Start: 09-16-2017 End: 09-17-2017 Patient encounter procedure Dona S Bl[place] Facility:[facility] Start: 09-16-2017 Patient encounter Facil [id number] Start: 08-18-2017 End: 08-19-2017 Patient encounter procedure Dona Castellanos [place] Facility:[facility] Start: 05-19-2017 End: 05-20-2017 Patient encounter procedure Dona Cox Facility:[facility] Payers Date Payer Category Payer Private Health Insurance 1960 Unknown [id number] 1960 Unknown [id number] 1960 Unknown [id number] Private Health Insurance [id number] Summary Purpose Family History No Family History Records FoundNo Family History Records Found Advance Directives No Advanced Directives Records FoundNo Advanced Directives Records Found Additional Source Comments INFORMATION SOURCE (unrecogn ized section and content) DATE CREATED AUTHOR AUTHOR'S DAVONTE ATVALERIA 05/16/2018 [facility] FOR RECORDS PERTAINING TO PATIENTS WHO ARE [...] BE BASED ON THE PRIMARY CLINICAL RECORDS. [facility]. provides no warranty or guarantee of the accuracy or completeness of information in this document.
--- NOTE | 2023-04-23 07:45 | EKG12_ITS ---
Test Reason : HEART CATH Blood Pressure : / mmHG Vent. Rate : 071 BPM Atrial Rate : 071 BPM P-R Int : 154 ms QRS Dur : 084 ms QT Int : 422 ms P-R-T Axes : 020 007 025 degrees QTc Int : 458 ms Normal sinus rhythm Low voltage QRS Borderline ECG When compared with ECG of 18-APR-2022 05:19, No significant change was found Confirmed by MAYANK POTTS, NOBLE ([id number]), slot editor ANGELITA SHEETS ([id number]) on 04/25/2023 10:54:44 AM Referred By: Richard Wilson Confirmed By:NOBLE TALLEY MD
--- NOTE | 2023-04-23 12:00 | EKG12_ITS ---
Test Reason : Blood Pressure : / mmHG Vent. Rate : 062 BPM Atrial Rate : 062 BPM P-R Int : 180 ms QRS Dur : 088 ms QT Int : 438 ms P-R-T Axes : 000 005 015 degrees QTc Int : 444 ms Normal sinus rhythm Low voltage QRS Borderline ECG When compared with ECG of 23-APR-2023 07:45, MANUAL COMPARISON REQUIRED, DATA IS UNCONFIRMED Confirmed by MAYANK POTTS, NOBLE ([id number]), news videotape editor SOFI SHEPHERD ([id number]) on 04/25/2023 6:45:30 AM Referred By: Richard Wilson Confirmed By:NOBLE TALLEY MD
--- NOTE | 2023-04-23 12:01 | DCINST_ITS ---
Discharge Instructions Diet Discharge Diet: 1999 Calorie Control Diet Activity Discharge Activity: Return to Normal Activity Dressing / Incision Call your doctor if your incision/area has: Continuous Slow Oozing, Sudden Increased Bleeding, Increased Pain/ Swelling, Increased Redness, Foul Smelling Discharge and Swelling at the incision site Call your doctor if you observe: Fever of 101 or Higher, Coldness, Increased Pain, Numbness or Tingling and Change in Color Follow Up Care Please Follow Up With: Richard Wilson MD When: 2-4 weeks Test Results: Test results from this visit will be discussed in further detail at your follow- up appointment, if applicable. Discharge Plan Admission Admit Date/Time: 04/23/23 11:55 Attending Provider: Richard Wilson Primary Care Provider: Zoë Payton Consulting Providers: Nesha Reid NP Discharge Orders/Prescriptions Prescriptions: Continued clonidine HCl 0.1 mg tablet 1 tab PO BID 30 Days Qty: 60 venlafaxine [Effexor XR] 150 mg capsule,extended release 24hr 150 mg PO DAILY 30 Days Qty: 30 furosemide 20 mg tablet 1 tab PO DAILY 30 Days Qty: 30 levothyroxine 112 mcg tablet 1 tab PO DAILY 30 Days Qty: 30 fluticasone propion-salmeterol [Advair Diskus] 250-50 mcg/dose blister with device 1 inh INHALATION BID PRN (Reason: Shortness Of Breath) multivitamin Tablet 1 tab PO DAILY glimepiride 2 mg tablet 4 mg PO BID nitroglycerin 0.4 mg tablet, sublingual 0.4 mg sublingual Q5M PRN (Reason: chest pain) Qty: 25 3RF Rx Instructions: do not exceed 3 doses per episode lisinopril 10 mg tablet 10 mg PO DAILY 30 Days Qty: 30 cetirizine [Zyrtec] 10 mg tablet 10 mg PO DAILY PRN (Reason: allergy symptoms) gabapentin 100 mg capsule 100 mg PO QHS albuterol sulfate 90 mcg/actuation HFA aerosol inhaler 2 puff inhalation Q4H PRN PRN (Reason: Sob &/Or Wheezing) insulin glargine [Lantus Solostar U-100 Insulin] 100 unit/mL (3 mL) insulin pen 33 unit SUBCUT QHS clopidogrel 75 mg tablet 75 mg PO DAILY Qty: 90 3RF metoprolol succinate 200 mg tablet extended release 24 hr 200 mg PO DAILY 60 Days Qty: 90 4RF amlodipine 5 mg tablet 5 mg PO DAILY Qty: 90 3RF atorvastatin 40 mg tablet 40 mg PO QHS Qty: 90 3RF Changed aspirin 81 mg tablet,delayed release (DR/EC) 81 mg PO DAILY Qty: 100 3RF Held metformin 1,000 mg tablet 1,000 mg PO BID Hold Instructions: Resume on 04/26/23. Referrals / Follow Up: Zoë Payton MD [Primary Care Provider] - Disposition Disposition (needs filled in before D/C Order can be placed): Home, Self Care
--- NOTE | 2023-04-23 12:20 | CL.I_ITS ---
Patient Name: TASIA CANDELARIA Study Date: 04/23/2023 Performing: Richard Wilson MD Ht: 66 inches 167.64 cm : 1960 Wt: 233.3 lbs 105.69 kg Age: 62 Gender: female BSA: 2.13 PROCEDURE(S) PERFORMED DC02-(20050)LHC/COR IC12-(02436/C9600)MEKA W/WO PTCA, SINGLE CORONARY ARTERY IC13-(42799/C9600)MEKA W/WO PTCA, EACH ADD'L ART, SAME MAJOR CLINICAL PROFILE AND CO-MORBIDITIES Indications: Worsening Angina Heart Failure: None Angina Classification Anginal Classification w/in 2 Weeks: CCS II CONCLUSIONS 70% distal LAD 80% Mid D2 Stent to distal RCA patent Successful MEKA Mid D2 using [place] Blount 2.5x18 mm Successful MEKA distal LAD using Eve Blount 2.5x15 mm RECOMMENDATIONS ASA Indefinitley Plavix for at least 12 months DESCRIPTION OF PROCEDURE The patient arrived to the procedure lab. The risks and benefits of the procedure as well as a full description of our services here and lack of surgical backup were fully explained to the patient and/or their significant other prior to the catheterization. The Timeout was completed, verifying the correct patient and procedure. The patient's procedural site was prepped and draped in the usual fashion. Local anesthetic was given subcutaneously to right radial region with Lidocaine 2%. Using a modified Seldinger technique, arterial access was obtained via the right radial artery, a 6Fr sheath was inserted.. Left Coronary Artery selective angiography was performed in multiple views using a 5 Fr. 4.0 Joseph catheter. Right Coronary Artery selective angiography was then performed in multiple views using a 5 Fr. 4.0 Joseph catheterThe images were reviewed and options discussed. A decision was then made to proceed with an Intervention, IVUS or other adjunct procedure. XB 3.0 Guide catheter was inserted and engaged into the LCA. Runthrough Guide wire was advanced to the 2nd Diagonal. Jonathan Blount 2.5 x 18 Drug Eluting stent was inserted. Drug Eluting stent was advanced across the lesion in the second diagonal, mid Angiogram performed post stent deployment. NC Euphora 2.5 x 15 Balloon catheter was inserted. Balloon catheter was advanced across lesion in the second diagonal, mid Angiogram performed post balloon dilatation. Guide wire was repositioned to the LAD [place] Blount 2.5 x 15 Drug Eluting stent was inserted. Drug Eluting stent was advanced across the lesion in the LAD, distal. Angiogram performed pre stent deployment. NC Euphora 2.5 x 12 Balloon catheter was inserted. Balloon catheter was advanced across lesion in the LAD, distal. Angiogram performed pre balloon dilatation. The arterial sheath was pulled and a TR Band was applied for hemostasis CORONARY ANGIOGRAPHY LEFT MAIN: Angiographically normal LEFT ANTERIOR DESCENDING ARTERY: LAD: Tubular 70% Distal lesion in LAD DIAGONAL 2: Tubular 50% Ostial lesion in DIAG2 Tubular 80% Mid lesion in DIAG2 INTERVENTION INFORMATION LESION SITE: 2nd Diagonal (Mid) Lesion Complexity: Non-High/Non-C, lesion length: 16 mm Pre Stenosis: 80 % Pre intervention MALLORY flow: 3 PROCEDURE: Drug Eluting Stent with post dilatation Post Stenosis: 0 % Post intervention MALLORY flow: 3 Lesion Devices: Cordis 6 Fr XB3.0 100cm Guide Catheter Terumo .014 180cm Runthrough Extra Floppy straight Medtronic 2.50 x 18 JONATHAN FRONTIER MEKA Medtronic NC EUPHORA RX 2.5x15 BALLOON LESION SITE: LAD (Distal) Lesion Complexity: Non-High/Non-C, lesion length: 14 mm Pre Stenosis: 70 % Pre intervention MALLORY flow: 3 PROCEDURE: Drug Eluting Stent with post dilatation Post Stenosis: 0 % Post intervention MALLORY flow: 3 Lesion Devices: Cordis 6 Fr XB3.0 100cm Guide Catheter Terumo .014 180cm Runthrough Extra Floppy straight Medtronic 2.50 x 15 JONATHAN FRONTIER MEKA Medtronic NC EUPHORA RX 2.5x12 BALLOON COMPLICATIONS No Complications PROCEDURE MEDICATIONS Fentanyl 50 mcg IV Versed 1 mg IV Oxygen: 2 L/min via nasal cannula Heparin given IA 04/23/2023 11:13:41 Heparin 7000 unit(s) IV 04/23/2023 11:23:34 Nitro 100 mcg IC 04/23/2023 11:35:49 Nitro 200 mcg IC 04/23/2023 11:45:21 Plavix 300 mg PO 04/23/2023 11:54:00 Verapamil 2.5mg, Ntg 200mcgs, 2000 units of Heparin given IA 04/23/2023 11:13:41 IV Bolus: .9 NaCl 300 ml total 04/23/2023 11:14:57 SUMMARY OF HEMODYNAMIC DATA Time AIR REST ECG 07:52:25 ECG 10:54:21 AO 113/76 (92) SA 11:16:17 Signed By Richard Wilson MD On 04/23/2023 12:19:50 Richard Wilson MD
[2023-04-23] MEDS: 0.9% Normal Saline (1000mL) 1,000 ML 150 ML IV (12:32)
[2023-04-23 13:21] LABS: ACT Activated Clotting Time 255 sec (74-137)
--- NOTE | 2023-04-23 14:02 | CRPHASE1_ITS ---
Patient Communication Patient Information Former Patient:: Phase I and Phase II PHII Cardiac Rehab Discussed with Patient:: Yes Guide to Cardiac Rehab Given to Patient:: Yes Cardiac Rehab Facility Choice List Given to Patient:: Yes Communication to Cardiac Rehab Choice Program [facility] CR PHII:: Communication Given to CR Child Welfare Specialist:: Richard Wilson Phase II Cardiac Rehab:: Yes Sessions:: 36 sessions - 3 days/wk, 12 weeks Cardiac Rehabilitation Info Program Information Cardiac Rehabilitation Program Information: Cardiac Rehab The cardiac rehab team at [facility] consists of highly skilled exercise physiologists, nurses, respiratory therapists and physicians working together with you. Our purpose is to help you have a full recovery and achieve the goals you set for yourself. Over the years many of our patients have returned to activities they assumed they would never do again! We can help restore your confidence and motivation to make lifestyle changes that can have a significant impact on your health and quality of life! We can help answer questions and concerns you may have about exercise, lifestyle, medications, diet, stress and anxiety which are common following a hospitalization. WE monitor ECG and vital signs during exercise and discuss your progress with you and report to your physician(s). Cardiac Rehab is proven to help reduce readmissions, improve functional capacity and lower recurrence of problems with your heart. Our Cardiac Rehab program is Certified by the [place] [employer] Pulmonary [employer] (AACVPR) and Accredited by the [place] [employer] through our [facility]. You can contact us at . We invite you to call us with your questions or to get started in our program. If you have other questions or concerns be sure to ask your physician/provider during your follow-up visit. WE look forward to seeing you!
--- NOTE | 2023-04-23 14:10 | CRPH1.INSTRU ---
General Education Discussed with Patient CAD and cardiac anatomy and function:: Patient communicates acknowledgment Explanation of diagnoses and procedures:: Patient communicates acknowledgment Sign/Symptoms of CA:: Patient communicates acknowledgment Antiplatelet therapy: Patient communicates acknowledgment Proper use of NTG-SL: Patient communicates acknowledgment Emergency procedures and activation of EMS: Patient communicates acknowledgment Compliance of all prescribed medications: Patient communicates acknowledgment Smoking Risk Factors Patient Nicotine/Smoking Risk Factors Are:: Non-smoker Dyslipidemia Risk Factors Patient Dyslipidemia Risk Factors Are:: Total Cholesterol, Triglycerides, HDL and LDL Recommendations Recommendations Include:: Lipid profile not available, Reviewed NCEP/ATP guidelines and Therapeutic Lifestyle Change dietary guidelines Response Code Dyslipidemia Response Code:: Patient communicates acknowledgment Overweight/Obesity Risk Factors Patient Overweight/Obesity Risk Factors Are:: Obesity - > or = 30 Recommendations Recommendations Include:: Weight loss of 5-10%, Reduced calorie diet and Exercise 5-7 times/week Response Code Overweight/Obesity:: Patient communicates acknowledgment Hypertension Recommendations Recommendations Include:: BP <130/80 if diabetic, DASH dietary guidelines, Decrease/maintain normal body weight and Moderation of ETOH Response Code Hypertension:: Patient communicates acknowledgment Diabetes Risk Factors Patient Diabetes Risk Factors Are:: Elevated blood sugars and Post-op hyperglycemia Recommendations Recommendations Include:: Maintain fasting blood sugars 70-110 md/dL, Maintain HgbA1c of 6% or less, Monitor blood sugar as prescribed, Diabetic dietary guidelines and Decrease/maintain body weight Response Code Diabetes:: Patient communicates acknowledgment Metabolic Syndrome Risk Factors Patient Metabolic Syndrome Risk Factors Are [3 of 5]:: Fasting blood sugar > 100 mg/dL, Waist circumference > 35 [female] or 40 [male], High triglyceride >150, Hypertension and Low HDL <40 [male] or < 50 [female] Recommendations Recommendations Include:: Reinforce compliance to risk factor modifications and Patient is diabetic Response Code Metabolic Syndrome Response Code:: Patient communicates acknowledgment Sedentary Risk Factors Patient Sedentary Risk Factors Are:: Lack of regular exercise Recommendations Recommendations Include:: Aerobic exercise 5-7 times/week for 20-30 minutes continuously, Benefits of regular exercise, Discussed home walking program and Monitored Outpatient Cardiac Rehab Response Code Sedentary Response Code:: Patient communicates acknowledgment Stress Risk Factors Patient Stress Risk Factors Are:: Patient denies stress as a risk factor Recommendations Recommendations Include:: Identification of stressors, and assessment of coping skills and Stress management techniques Response Code Stress Response Code:: Patient communicates acknowledgment
[2023-04-23] MEDS: Glimepiride 4 MG Tablet PO (18:35)
[2023-04-23] MEDS: Atorvastatin Calcium 40 MG Tablet PO (22:24)
[2023-04-23] MEDS: Insulin Glargine-YFGN 100 UNIT/ML Pen 33 UNIT SC (22:24)
[2023-04-23] MEDS: cloNIDine HCl 0.1 MG Tablet 0.100000000000000006 MG PO (22:24)
[2023-04-23] MEDS: Gabapentin 100 MG Capsule PO (22:24)
[2023-04-23 22:59] LABS: Bedside Glucose 151 mg/dL (74-106)
[2023-04-24 05:00] VITALS: BP 128/69; PULSE 68; RESP 18; TEMP 36.2; O2SAT 94
[2023-04-24] MEDS: Levothyroxine 112 MCG Tablet PO (05:08)
[2023-04-24 07:31] VITALS: O2SAT 97
[2023-04-24 07:38] LABS: Hematocrit 39.8 % (37-47); Hemoglobin 12.9 g/dL (12.0-15.0); Mean Corp Hgb Conc 32.4 g/dL (32-36); Mean Corpuscular Hgb 28.9 pg (27.0-32.0); Mean Platelet Vol. 9.5 fl (6.2-12.0); Platelet Count 262 K/mm3 (150-450); RBC Distribution Width CV 13.1 % (11.6-14.6); RBC Distribution Width SD 42.6 fl (35.1-43.9); Red Blood Count 4.47 M/mm3 (4.2-5.4); White Blood Count 9.6 K/mm3 (4.4-11.0)
[2023-04-24 08:11] LABS: ALB/GLOB Ratio 1.1 RATIO (0.9-2.4); AST(SGOT) 10 U/L (15-37); Alanine Aminotransfer ALT/SGPT 21 U/L (13-56); Albumin, Serum 3.3 g/dL (3.2-5.0); Alkaline Phosphatase 96 U/L (45-117); Anion Gap 2 (5-15); BUN 10 mg/dL (7-18); BUN/Creat Ratio 18.4 RATIO (10-20); Chloride 112 mmol/L (98-107); Creatinine, Serum 0.54 mg/dL (0.55-1.02); EST Glomerular Filtration Rate 121 mL/min (>60); Est Glom Filt Rate - Afr Amer 147 mL/min (>60); Estimated Creatinine Clearance 136.41 ml/min; Globulin 3.1 g/dL (2.2-4.2); Glucose 233 mg/dL (74-106); Potassium 3.7 mmol/L (3.5-5.1); Protein, Total 6.4 g/dL (6.4-8.2); Sodium Level 140 mmol/L (136-145)
[2023-04-24 08:28] VITALS: BP 155/80; PULSE 62; RESP 16; TEMP 36.8; O2SAT 96
[2023-04-24] MEDS: Glimepiride 4 MG Tablet PO (08:31)
[2023-04-24] MEDS: Multivitamins,Therapeutic Tablet 1 TABLET PO (08:32)
[2023-04-24] MEDS: cloNIDine HCl 0.1 MG Tablet 0.100000000000000006 MG PO (08:32)
[2023-04-24] MEDS: Furosemide 20 MG Tablet PO (08:32)
[2023-04-24] MEDS: Aspirin E.C. 81 MG Tablet PO (08:32)
[2023-04-24] MEDS: Venlafaxine XR 150 MG Capsule PO (08:32)
[2023-04-24 08:33] VITALS: BP 155/80; PULSE 62
[2023-04-24] MEDS: amLODIPine 5 MG Tablet PO (08:33)
[2023-04-24] MEDS: Metoprolol(XL)Succ 200 MG Tablet PO (08:33)
[2023-04-24] MEDS: Clopidogrel Bisulfate 75 MG Tablet PO (08:33)
[2023-04-24] MEDS: Lisinopril 10 MG Tablet PO (08:33)
--- NOTE | 2023-04-24 09:40 | PCM.DC ---
Discharge Instructions Diet Discharge Diet: 1999 Calorie Control Diet Dressing / Incision Call your doctor if your incision/area has: Continuous Slow Oozing, Sudden Increased Bleeding, Increased Pain/ Swelling, Increased Redness, Foul Smelling Discharge and Swelling at the incision site Call your doctor if you observe: Fever of 101 or Higher, Coldness, Increased Pain, Numbness or Tingling and Change in Color Follow Up Care Please Follow Up With: Richard Wilson MD Test Results: Test results from this visit will be discussed in further detail at your follow-up appointment, if applicable. Discharge Plan Admission Admit Date/Time: 04/23/23 11:55 Attending Provider: Richard Wilson Primary Care Provider: Zoë Payton Consulting Providers: Nesha Reid NP Discharge Orders/Prescriptions Prescriptions: Continued clonidine HCl 0.1 mg tablet 1 tab PO BID 30 Days Qty: 60 venlafaxine [Effexor XR] 150 mg capsule,extended release 24hr 150 mg PO DAILY 30 Days Qty: 30 furosemide 20 mg tablet 1 tab PO DAILY 30 Days Qty: 30 levothyroxine 112 mcg tablet 1 tab PO DAILY 30 Days Qty: 30 fluticasone propion-salmeterol [Advair Diskus] 250-50 mcg/dose blister with device 1 inh INHALATION BID PRN (Reason: Shortness Of Breath) multivitamin Tablet 1 tab PO DAILY glimepiride 2 mg tablet 4 mg PO BID nitroglycerin 0.4 mg tablet, sublingual 0.4 mg sublingual Q5M PRN (Reason: chest pain) Qty: 25 3RF Rx Instructions: do not exceed 3 doses per episode lisinopril 10 mg tablet 10 mg PO DAILY 30 Days Qty: 30 cetirizine [Zyrtec] 10 mg tablet 10 mg PO DAILY PRN (Reason: allergy symptoms) gabapentin 100 mg capsule 100 mg PO QHS albuterol sulfate 90 mcg/actuation HFA aerosol inhaler 2 puff inhalation Q4H PRN PRN (Reason: Sob &/Or Wheezing) insulin glargine [Lantus Solostar U-100 Insulin] 100 unit/mL (3 mL) insulin pen 33 unit SUBCUT QHS clopidogrel 75 mg tablet 75 mg PO DAILY Qty: 90 3RF metoprolol succinate 200 mg tablet extended release 24 hr 200 mg PO DAILY 60 Days Qty: 90 4RF amlodipine 5 mg tablet 5 mg PO DAILY Qty: 90 3RF atorvastatin 40 mg tablet 40 mg PO QHS Qty: 90 3RF Changed aspirin 81 mg tablet,delayed release (DR/EC) 81 mg PO DAILY Qty: 100 3RF Held metformin 1,000 mg tablet 1,000 mg PO BID Hold Instructions: Resume on 04/26/23. Referrals / Follow Up: Zoë Payton MD [Primary Care Provider] - Disposition Disposition (needs filled in before D/C Order can be placed): Home, Self Care
--- NOTE | 2023-04-24 09:54 | CASEMGMT ---
Patient has order for discharge. RN CM in to discuss needs at discharge. Patient denies needs or help at discharge. Patient had no further questions or concerns at this time.
--- NOTE | 2023-04-24 10:00 | EKG12_ITS ---
Test Reason : AM EKG Blood Pressure : / mmHG Vent. Rate : 063 BPM Atrial Rate : 063 BPM P-R Int : 154 ms QRS Dur : 086 ms QT Int : 456 ms P-R-T Axes : 029 012 024 degrees QTc Int : 466 ms Normal sinus rhythm Low voltage QRS Borderline ECG When compared with ECG of 23-APR-2023 12:26, MANUAL COMPARISON REQUIRED, DATA IS UNCONFIRMED Confirmed by MAYANK POTTS, NOBLE ([id number]), development editor SOFI SHEPHERD ([id number]) on 04/25/2023 6:44:11 AM Referred By: Richard Wilson Confirmed By:NOBLE TALLEY MD
== END 2023-04-24 08:30 | disposition home or self-care (01) ==
LOC: CLSP 12:02 → PCU 12:05
PROVIDERS: Nurse Practitioner Gerontology; Admitting Provider Internal Medicine Cardiovascular Disease; PCP Family Medicine; Referring Provider Internal Medicine Cardiovascular Disease; Visit Provider Internal Medicine Cardiovascular Disease
DX: I25.119 Atherosclerotic heart disease of native coronary artery with unspecified angina pectoris (principal); E11.9 Type 2 diabetes mellitus without complications; I10 Essential (primary) hypertension; Z95.5 Presence of coronary angioplasty implant and graft; E78.00 Pure hypercholesterolemia, unspecified; R94.39 Abnormal result of other cardiovascular function study; K21.9 Gastro-esophageal reflux disease without esophagitis
CPT/HCPCS: 36415; 71046; 80048; 80053; 82962; 84703; 85025; 85027; 85347; 92928; 92929; 93005; 93454; 96360; 96361; 99152; 99153; 99221; J7030; J7040; Q9967; C1725; C1769; C1874; C1887; C1894; C9600; C9601; G0378

== ENCOUNTER 2023-04-30 12:32 | Emergency (ER) | payer BC, SELFPAY ==
[2023-04-30 12:34] VITALS: BP 195/96; PULSE 107; RESP 14; TEMP 35.4; O2SAT 98; BMI 37.3
--- NOTE | 2023-04-30 12:45 | EX.ED.DYSGE1 ---
HPI History of Present Illness Chief Complaint: Palpitations Informant: patient Onset/Context/Timing Onset: Days (4) Context: Gradual Onset Timing: Continuous Quality: Fluttering Location: Chest Worsened by: Movement, activity Relieved by: Nothing Narrative Narrative: Patient presents with palpitations that began 4 days ago. Patient states that it feels like her heart is fluttering. Patient states she noticed her heart racing at times. Patient states it is worse when she gets up and walks and does anything. Patient states nothing seems to help with it. Patient admits to some shortness of breath. Patient denies any nausea or vomiting. Patient denies any diaphoresis. Patient denies any chest pain. Patient denies any fevers or chills. [facility] Medical History Abnormal bruising Abnormal mammogram of right breast Abnormal stress test Aphthous stomatitis Asthma Atherosclerotic heart disease of [place] coronary artery without angina pectoris Breast mass, left Bronchitis CAD (coronary artery disease) Chest pain Diabetes DM2 (diabetes mellitus, type 2) LEES (dyspnea on exertion) Essential hypertension GERD (gastroesophageal reflux disease) Hemorrhoids High cholesterol History of edema History of irregular heartbeat HLD (hyperlipidemia) HTN (hypertension), benign Hypertension Hypothyroidism Leukocytosis Nodule of neck Obesity Palpitations Presence of stent in coronary artery (~04/23/23) Pure hypercholesterolemia Screening for intestinal cancer Thyroid disease Vitamin D deficiency Home Medications clonidine HCl 0.1 mg tablet 1 tab PO BID htn 30 days #60 tabs 08/13/18 [History Last Taken 04/17/22] fluticasone 250 mcg-salmeterol 50 mcg/dose blistr powdr for inhalation (Advair Diskus) 1 inh inhalation BID PRN Shortness Of Breath 08/13/18 [History Last Taken 04/17/22] furosemide 20 mg tablet 1 tab PO DAILY diuretic 30 days #30 tabs 08/13/18 [History Last Taken Unknown] levothyroxine 112 mcg tablet 1 tab PO DAILY thyroid 30 days #30 tabs 08/13/18 [History Last Taken 04/23/23] venlafaxine 150 mg capsule,extended release 24 hr (Effexor XR) 150 mg PO DAILY mental health 30 days #30 caps 08/13/18 [History Last Taken 04/23/23] metformin 1,000 mg tablet 1,000 mg PO BID diabetes 04/19/20 [History Last Taken 04/16/22] multivitamin 1 tab PO DAILY vitamin 04/19/20 [History Last Taken Unknown] albuterol sulfate 90 mcg/actuation aerosol inhaler 2 puff inhalation Q4H PRN PRN Sob &/Or Wheezing 03/08/22 [History Last Taken 04/17/22] glimepiride 2 mg tablet 4 mg PO BID diabetic 03/08/22 [History Last Taken Unknown] insulin glargine 100 unit/mL (3 mL) subcutaneous pen (Lantus Solostar U-100 Insulin) 33 unit subcut QHS diabetes 03/08/22 [History Last Taken Unknown] nitroglycerin 0.4 mg sublingual tablet 0.4 mg sublingual Q5M PRN chest pain #25 tabs 03/08/22 [Rx Last Taken Unknown] lisinopril 10 mg tablet 10 mg PO DAILY blood pressure 30 days #30 tabs 04/09/22 [History Last Taken 04/23/23] clopidogrel 75 mg tablet 75 mg PO DAILY anti platelet #90 tabs 06/04/22 [Rx Last Taken 04/23/23] metoprolol succinate 200 mg tablet,extended release 24 hr 200 mg PO DAILY blood pressure 60 days #90 tabs 06/04/22 [Rx Last Taken 04/23/23] cetirizine 10 mg tablet (Zyrtec) 10 mg PO DAILY PRN allergy symptoms 01/27/23 [History Last Taken Unknown] gabapentin 100 mg capsule 100 mg PO QHS nerve pain 01/27/23 [History Last Taken Unknown] amlodipine 5 mg tablet 5 mg PO DAILY blood pressure #90 tabs 03/31/23 [Rx Last Taken 04/23/23] atorvastatin 40 mg tablet 40 mg PO QHS STOP Simvastatin #90 tabs 03/31/23 [Rx Last Taken Unknown] aspirin 81 mg tablet,delayed release 81 mg PO DAILY #100 tabs 04/23/23 [Rx Last Taken 04/23/23] Allergy/AdvReac Type Severity Reaction Status Date / Time meperidine [From Demerol] Allergy Mild Other Verified 04/30/23 12:34 Sulfa (Sulfonamide Allergy Mild X Verified 04/30/23 12:34 Antibiotics) Family History Mother Colon cancer CAD (coronary artery disease) Diabetes Hypertension High cholesterol Father Heart disease Diabetes Hypertension High cholesterol Brother Bleeding disorder Cancer melanoma Grandmother CVA (cerebral vascular accident) Heart disease Uncle CVA (cerebral vascular accident) Heart disease Aunt Heart disease Surgical History BLADDER SLING H/O partial thyroidectomy H/O right heart catheterization History of History of hysterectomy History of left heart catheterization (LHC) (~04/23/23) History of tonsillectomy Hx of colonoscopy Presence of coronary angioplasty implant and graft (~04/17/22) Social History household members: spouse housing: house Smoking Status: Never smoker alcohol intake: never substance use type: does not use caffeine: Yes Type: carbonated beverages Number of servings: 3 ROS ROS ED Constitutional Constitutional ED: Denies chills or fever(s) Eyes Eyes: Denies blurry vision or change in vision ENT ENT ED: Denies rhinorrhea or sore throat Cardiovascular Cardiovascular: Reports palpitations; Denies chest pain Respiratory/Chest Respiratory/Chest: Reports dyspnea; Denies cough Gastrointestinal Gastrointestinal: Denies nausea or vomiting Genitourinary Genitourinary ED: Denies dysuria or hematuria Musculoskeletal Musculoskeletal: Denies back pain or neck pain Integumentary Denies abscess or rash Neurologic Neurologic: Denies headache(s) or weakness Allergic/Immunologic Allergic/Immunologic ED: Denies mouth swelling or urticaria EXAM Physical Exam Const Vital Signs: 04/30/23 12:34 04/30/23 12:47 04/30/23 14:51 Temperature 95.7 F L Temperature Source Temporal Pulse Rate 107 H 102 H 110 H Respiratory Rate 14 12 22 H Blood Pressure 195/96 H 143/91 H 142/93 H Blood Pressure Mean 129 108 109 Pulse Ox 98 96 95 Oxygen Delivery Method Room Air Room Air Positive well nourished, well developed and obese General Appearance ED: well developed and NAD Nutritional Appearance: obese HEENT Reports moist mucous membranes Neck supple and no JVD Resp normal respiratory effort and clear to auscultation bilaterally Cardio regular rhythm Rate: tachycardic GI non-tender and non-distended Palpation: soft Extremity normal to inspection General Extremety ED: Negative for edema or tenderness General Extremity: Negative for edema Neuro oriented x3, CN's II-XII intact bilaterally and no sensory deficits noted Sensorium / Orientation: alert Motor Exam: strength 5/5 throughout Psych mental status grossly normal MDM MDM MDM Narrative Medical decision making narrative: Differential diagnosis includes cardiac dysrhythmia, cardiac ischemia, pneumonia, electrolyte abnormality, congestive heart failure, hypothyroidism, and anxiety. EKG will be obtained to assess for cardiac dysrhythmia and cardiac ischemia. Chest x-ray will be obtained to assess for pneumonia and congestive heart failure. CBC will be obtained to assess for leukocytosis and anemia. Basic metabolic profile will be obtained to assess for electrolyte abnormality and renal function. High-sensitivity troponin will be obtained to assess for cardiac ischemia. BNP will be obtained to assess for congestive heart failure. TSH will be obtained to assess for hypothyroidism Lab Data Attestation: I reviewed the patient's lab results. Lab results narrative: CBC was reviewed. There is a slight leukocytosis of 12.9. The remainder is within normal limits. Basic metabolic profile was reviewed and was within normal limits. High-sensitivity troponin was reviewed and was normal at 6. BNP was reviewed and was normal at 6.1. TSH was reviewed and was normal at 0.44. COVID-19 PCR was reviewed and was negative. Influenza PCR was reviewed and was negative for influenza A and influenza B. RSV PCR was reviewed and was negative. Labs: Laboratory Results - last 24 hr 04/30/23 13:00 WBC 12.9 H RBC 5.01 Hgb 14.7 Hct 43.9 MCV 87.6 MCH 29.3 MCHC 33.5 RDW Std Deviation 43.1 RDW Coeff of [place] 13.5 Plt Count 325 MPV 9.9 Immature Gran % (Auto) 0.300 Neut % (Auto) 65.2 Lymph % (Auto) 23.4 [place] % (Auto) 5.7 Eos % (Auto) 4.8 Baso % (Auto) 0.6 Absolute Neuts (auto) 8.4 H Absolute Lymphs (auto) 3.01 Nucleated RBC % 0 Sodium 138 Potassium 4.0 Chloride 104 Carbon Dioxide 24.0 Anion Gap 10 BUN 12 Creatinine 0.62 Estim Creat Clear Calc 116.64 Est GFR (MDRD) Af Amer 125 Est GFR (MDRD) Non-Af 103 BUN/Creatinine Ratio 19.2 Glucose 171 H Calcium 9.7 Troponin I High Sens 6 B-Natriuretic Peptide 6.1 TSH 0.44 Radiography Diagnostic Testing: Clinical Impression(s) from Imaging Studies Chest X-Ray 04/30/23 13:03 IMPRESSION: No acute abnormality is seen. Electronically Signed: Antonio Barbosa MD at 13:47 EST , EKG Initial EKG: Attestation: I personally reviewed and interpreted this EKG as follows: Interpretation: Sinus Tachycardia (104) and Non-Specific ST Changes Comments: EKG was obtained. On my independent interpretation, it showed a sinus tachycardia with a rate of 104. [place] interval, QRS interval, and QTc intervals were all normal. [place] was normal. There are no acute ST or T wave changes. Prior EKG tracings: available for review Prior: Unchanged (04/24/2023) Treatment and Re-Evaluation :: Patient's heart rate remained around 100. Patient was advised of her findings. Patient has a HEART score of 3. Patient was advised that this is low risk for acute cardiac event. Patient was instructed to follow-up with her primary care physician in 5 to 7 days. Patient was instructed to return if worse in any way. Patient understood and was agreeable with the plan. All questions were answered. Discharge Plan Triage Chief Complaint: Palpitations ED Provider: Hector Costa Dx/Rx/DC Orders Clinical Impression: Palpitations, Essential hypertension Instructions: ED Palpitations Prescriptions: No Action clonidine HCl 0.1 mg tablet 1 tab PO BID 30 Days Qty: 60 venlafaxine [Effexor XR] 150 mg capsule,extended release 24hr 150 mg PO DAILY 30 Days Qty: 30 furosemide 20 mg tablet 1 tab PO DAILY 30 Days Qty: 30 levothyroxine 112 mcg tablet 1 tab PO DAILY 30 Days Qty: 30 fluticasone propion-salmeterol [Advair Diskus] 250-50 mcg/dose blister with device 1 inh INHALATION BID PRN (Reason: Shortness Of Breath) metformin 1,000 mg tablet 1,000 mg PO BID Hold Instructions: Resume on 04/26/23. multivitamin Tablet 1 tab PO DAILY glimepiride 2 mg tablet 4 mg PO BID nitroglycerin 0.4 mg tablet, sublingual 0.4 mg sublingual Q5M PRN (Reason: chest pain) Qty: 25 3RF Rx Instructions: do not exceed 3 doses per episode lisinopril 10 mg tablet 10 mg PO DAILY 30 Days Qty: 30 cetirizine [Zyrtec] 10 mg tablet 10 mg PO DAILY PRN (Reason: allergy symptoms) gabapentin 100 mg capsule 100 mg PO QHS albuterol sulfate 90 mcg/actuation HFA aerosol inhaler 2 puff inhalation Q4H PRN PRN (Reason: Sob &/Or Wheezing) insulin glargine [Lantus Solostar U-100 Insulin] 100 unit/mL (3 mL) insulin pen 33 unit SUBCUT QHS aspirin 81 mg tablet,delayed release (DR/EC) 81 mg PO DAILY Qty: 100 3RF clopidogrel 75 mg tablet 75 mg PO DAILY Qty: 90 3RF metoprolol succinate 200 mg tablet extended release 24 hr 200 mg PO DAILY 60 Days Qty: 90 4RF amlodipine 5 mg tablet 5 mg PO DAILY Qty: 90 3RF atorvastatin 40 mg tablet 40 mg PO QHS Qty: 90 3RF Primary Care Provider: Zoë Payton Referrals: Zoë Payton MD [Primary Care Provider] - 5-7 Days Disposition Disposition: Home, Self Care
[2023-04-30 12:47] VITALS: BP 143/91; PULSE 102; RESP 12; O2SAT 96
--- NOTE | 2023-04-30 13:03 | RAD_ITS ---
STUDY: X-RAY CHEST REASON FOR EXAM: Female, 62 years old. Chest pain TECHNIQUE: Single AP portable view of the chest. COMPARISON: Comparison is made with prior study dated April 18, 2023. FINDINGS: EKG electrodes are seen. The lungs are clear and expanded. There is no demonstrated pleural abnormality. Normal size heart. Normal mediastinum and casey. Normal visualized pulmonary arteries. There is atherosclerotic tortuosity of the aortic arch and descending thoracic aorta. There are diffuse degenerative changes of the visualized thoracic spine. Normal visualized ribs, clavicles, and shoulders. There is no demonstrated abnormality of the visualized soft tissue structures of the upper abdomen. RAD/Chest 1 View (Portable) IMPRESSION: No acute abnormality is seen. Electronically Signed: Antonio Barbosa MD at 13:47 EST ,
--- NOTE | 2023-04-30 13:03 | EKG12_ITS ---
Test Reason : CP Blood Pressure : / mmHG Vent. Rate : 104 BPM Atrial Rate : 104 BPM P-R Int : 154 ms QRS Dur : 080 ms QT Int : 358 ms P-R-T Axes : 045 005 027 degrees QTc Int : 470 ms Sinus tachycardia Low voltage QRS Cannot rule out Inferior infarct , age undetermined Abnormal ECG Confirmed by THOMAS POTTS, BALDEV ([id number]), art editor SOFI SHEPHERD ([id number]) on 05/05/2023 9:34:16 AM Referred By: Confirmed By:ROHIT GUZMAN MD
[2023-04-30 13:17] LABS: Absolute Lymphocyte Count 3.01 X10^3/uL (0.83-4.51); Absolute Neutrophil Count 8.4 X10^3/uL (2.0-7.7); Basophil# 0.08 X10^3/uL; Basophil% 0.6 % (0-1); Eosinophil# 0.62 X10^3/uL; Eosinophils% 4.8 % (0-5); Hematocrit 43.9 % (37-47); Hemoglobin 14.7 g/dL (12.0-15.0); Lymphocyte # 3.01 X10^3/ul (0.83-4.51); Lymphocyte % 23.4 % (19-41); Mean Corp Hgb Conc 33.5 g/dL (32-36); Mean Corpuscular Hgb 29.3 pg (27.0-32.0); Mean Corpuscular Volume 87.6 fL (81-99); Mean Platelet Vol. 9.9 fl (6.2-12.0); Monocyte# 0.74 X10^3/uL; Monocyte% 5.7 % (0-10); NRBC Flagged by Analyzer 0 % (0-5); Neutrophil # 8.38 X10^3/uL (2.7-7.7); Neutrophil % 65.2 % (47-70); Platelet Count 325 K/mm3 (150-450); RBC Distribution Width CV 13.5 % (11.6-14.6); RBC Distribution Width SD 43.1 fl (35.1-43.9); Red Blood Count 5.01 M/mm3 (4.2-5.4); White Blood Count 12.9 K/mm3 (4.4-11.0)
[2023-04-30 13:39] LABS: Anion Gap 10 (5-15); BUN 12 mg/dL (7-18); BUN/Creat Ratio 19.2 RATIO (10-20); Calcium,Total 9.7 mg/dL (8.5-10.1); Chloride 104 mmol/L (98-107); Creatinine, Serum 0.62 mg/dL (0.55-1.02); EST Glomerular Filtration Rate 103 mL/min (>60); Est Glom Filt Rate - Afr Amer 125 mL/min (>60); Estimated Creatinine Clearance 116.64 ml/min; Glucose 171 mg/dL (74-106); Sodium Level 138 mmol/L (136-145); Thyroid Stim Hormone (TSH) 0.44 uIU/mL (0.358-3.74); Troponin-I HS 6 pg/mL (3.0-54.0)
[2023-04-30 14:01] LABS: BNP,B-Type NATRIURETIC PEPTIDE 6.1 pg/mL (0-100)
[2023-04-30 14:51] VITALS: BP 142/93; PULSE 110; RESP 22; O2SAT 95
[2023-04-30 15:21] VITALS: BP 124/76; PULSE 108; RESP 17; TEMP 36.9; O2SAT 93
== END 2023-04-30 15:24 | disposition home or self-care (01) ==
PROVIDERS: Emergency Provider Emergency Medicine; PCP Family Medicine; Visit Provider Emergency Medicine
DX: R00.2 Palpitations (principal); E11.9 Type 2 diabetes mellitus without complications; I10 Essential (primary) hypertension; R06.02 Shortness of breath; J45.909 Unspecified asthma, uncomplicated; I25.10 Atherosclerotic heart disease of native coronary artery without angina pectoris; E78.00 Pure hypercholesterolemia, unspecified; K21.9 Gastro-esophageal reflux disease without esophagitis; E66.9 Obesity, unspecified
CPT/HCPCS: 71045; 80048; 83880; 84443; 84484; 85025; 87631; 93005; 99283; A4216

== ENCOUNTER → 2023-07-03 | Outpatient (CLI) | payer BC, SELFPAY ==
--- NOTE | 2023-07-03 09:16 | US_ITS ---
STUDY: ULTRASOUND BREAST - RIGHT REASON FOR EXAM: Female, 62 years old. Right breast nodule. TECHNIQUE: Axial and longitudinal images of the RIGHT breast were performed with a high resolution ultrasound transducer. # OF IMAGES: 24 COMPARISON: Comparison is made with prior ultrasound of the right breast dated January 14, 2023. FINDINGS: RIGHT Breast: Stable 6 mm x 6 mm x 3 mm well-defined hypoechoic nodule at the 9:00 position of the breast at 15 cm from the nipple. This is just deep to the skin surface. A fatty hilum is seen in its central portion suggestive of a small lymph node. US/Breast Limited Unilateral IMPRESSION: Stable examination. ASSESSMENT CATEGORY: BIRADS Category 2: Benign. A letter regarding these results will be sent to the patient by the facility within 30 days. Electronically Signed: Antonio Barbosa MD at 10:04 EDT ,
== END | disposition home or self-care (01) ==
PROVIDERS: PCP Family Medicine; Referring Provider Surgery; Visit Provider Surgery
DX: R92.8 Other abnormal and inconclusive findings on diagnostic imaging of breast (principal)
CPT/HCPCS: 76642

== ENCOUNTER → 2023-12-26 | Outpatient (CLI) | payer BC, SELFPAY ==
--- OUTSIDE RECORDS SUMMARY | 2023-12-26 17:50 | XMS RPT_ITS | CCD ---
Author Organization 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 Name Role Phone Wanchese, Dona S Attending Unavailable Wanchese, Dona S Primary Care Unavailable Wanchese, Dona S Attending Unavailable Wanchese, Dona S Primary Care Unavailable Wanchese, Dona S Admitting Unavailable Wanchese, Dona S Attending Unavailable Wanchese, Dona S Primary Care Unavailable Wanchese, Dona S Admitting Unavailable Wanchese, Dona S Admitting Unavailable Wanchese, Dona S Attending Unavailable Wanchese, Dona S Primary Care Unavailable Wanchese, Dona S Admitting Unavailable Wanchese, Dona S Attending Unavailable Wanchese, Dona S Primary Care Unavailable Wanchese, Dona S Admitting Unavailable Wanchese, Dona S Attending Unavailable Wanchese, Dona S Primary Care Unavailable Allergies Allergy Classification Reported Allergen(s) Allergy Type Date of Onset Reaction(s) Facility (1 source) Meperidine; Translations: [Demerol HCl] Drug Allergy [facility] Repository Encounters Encounter Date Encounter Type Care Provider Facility Start: 05-14-2018 End: 05-15-2018 Patient encounter procedure Dona Castellanos Wanchese Facility:[facility] Start: 12-26-2017 End: 12-27-2017 Patient encounter procedure Dona S Wanchese Facility:[facility] Start: 12-15-2017 End: 12-16-2017 Patient encounter procedure Dona S Wanchese Facility:[facility] Start: 09-16-2017 End: 09-17-2017 Patient encounter procedure Dona S Wanchese Facility:[facility] Start: 09-16-2017 Patient encounter Facil [id number] Start: 08-18-2017 End: 08-19-2017 Patient encounter procedure Dona Castellanos Wanchese Facility:[facility] Start: 05-19-2017 End: 05-20-2017 Patient encounter procedure Dona Castellanos Wanchese Facility:[facility] Payers Date Payer Category Payer Private Health Insurance 1960 Unknown [id number] 1960 Unknown [id number] 1960 Unknown [id number] Private Health Insurance [facility] [id number] Summary Purpose Family History No Family History Records FoundNo Family History Records Found Advance Directives No Advanced Directives Records FoundNo Advanced Directives Records Found Additional Source Comments INFORMATION SOURCE (unrecogn ized section and content) DATE CREATED AUTHOR 10/24/2017 [facility] DATE CREATED AUTHOR AUTHOR'S DAVONTE MORTON 05/16/2018 [facility] FOR RECORDS PERTAINING TO PATIENTS WHO ARE [...] BE BASED ON THE PRIMARY CLINICAL RECORDS. [employer] provides no warranty or guarantee of the accuracy or completeness of information in this document.
== END | disposition home or self-care (01) ==
PROVIDERS: PCP Family Medicine; Referring Provider Family Medicine; Visit Provider Family Medicine
DX: R30.0 Dysuria (principal)
CPT/HCPCS: 87077; 87086; 87088; 87186

== ENCOUNTER → 2024-03-25 | Outpatient (CLI) | payer BC, SELFPAY ==
--- NOTE | 2024-03-25 08:23 | BI_ITS ---
MAMMOGRAPHY - BILATERAL SCREENING REASON FOR EXAM: Female, 63 years old. Routine annual screening examination. PERTINENT HISTORY: Non-contributory. History of prior left excisional breast biopsy. TECHNIQUE: Digital bilateral breast radha (3D mammographic acquisition) in the CC and MLO projections. 2-D mediolateral oblique (MLO) and craniocaudad (CC) views of both breasts were obtained. CAD: Full Field Digital Mammography with Computer Added Detection was performed. COMPARISON: Comparison is made with prior study dated January 09, 2023 and December 07, 2021. FINDINGS: Breast Composition: There are scattered areas of fibroglandular density. There are no dominant masses or suspicious calcifications. Stable 4.5 mm x 4.5 mm well-defined nodule in the central lateral aspect of the right breast. No other significant abnormalities are identified. There has been no significant change since the prior study. BI/SCRN MAMM (CAD)W/RADHA BILAT IMPRESSION: Stable bilateral screening mammogram. Yearly follow-up mammogram recommended. (A) ASSESSMENT CATEGORY: BIRADS Category 2: Benign. A letter regarding these results will be sent to the patient by the facility within 30 days. Approximately 10% of breast cancers are not detected by mammography. A normal mammogram should not delay biopsy of a clinically suspicious abnormality. [id number] Electronically Signed: Antonio Barbosa MD at 10:05 EST ,
== END | disposition home or self-care (01) ==
LOC: OPBI 08:21
PROVIDERS: PCP Family Medicine; Referring Provider Family Medicine; Visit Provider Family Medicine
DX: Z12.31 Encounter for screening mammogram for malignant neoplasm of breast (principal)
CPT/HCPCS: 77063; 77067